=== PATIENT | male | born 1960 | race Caucasian/White ===

== ENCOUNTER 2018-09-08 23:20 | Emergency (ER) | payer OTHER ==
--- NOTE | 2018-09-09 00:11 | RAD ---
TWO VIEWS RIGHT HIP 09/08/18 HISTORY: Pain. COMPARISON: 11/07/11. FINDINGS: Uncomplicated right hip arthroplasty. Heterotopic bone formation is noted. No fracture. Vascular calc ifications are identified. IMPRESSION: Uncomplicated right hip arthroplasty. POS: [facility]
== END 2018-09-09 03:43 | disposition home or self-care (01) ==
LOC: ERS 23:20
DX: M25.551 Pain in right hip (principal); G89.29 Other chronic pain; F17.210 Nicotine dependence, cigarettes, uncomplicated; Z79.899 Other long term (current) drug therapy

== ENCOUNTER 2018-12-15 11:35 | Outpatient (CLI) | payer OTHER ==
--- NOTE | 2018-12-15 13:00 | RAD ---
LUMBAR SPINE RADIOGRAPHS THREE VIEWS: 12/15/2018 PROVIDED CLINICAL HISTORY: Lumbar spondylosis. FINDINGS: Five ged-soi-gjzbchj lumbar-type vertebral bodies are present. Lumbar alignment appears normal. The re is no evidence for abnormal translational motion with flexion or extension. Advanced multilevel l umbar disk and facet degenerative changes are seen. Vertebral body heights appear preserved. Vascul ar calcification is noted. IMPRESSION: Advanced multilevel lumbar degenerative change. POS: [facility]
--- NOTE | 2018-12-15 13:01 | RAD ---
CERVICAL SPINE RADIOGRAPHS 3 VIEWS: DATE: 12/15/2018. PROVIED CLINICAL HISTORY: Cervical radiculopathy. FINDINGS: Lateral neutral, lateral flexion, and lateral extension views of the cervical spine submitted. The s kull base through the top of the cranial aspects of the C7 vertebral body are visualized. Cervical a lignment appears normal, without evidence for abnormal translational motion with flexion and extensio n as visualized. Disk space narrowing and end plate degenerative changes conspicuously involve C3-4, C4-5, and C5-6. No prevertebral soft tissue swelling evident. IMPRESSION: Cervical degenerative change. POS: [facility]
== END 2018-12-15 11:36 | disposition home or self-care (01) ==
LOC: RAD 11:35
PROVIDERS: ATTEND Nurse Practitioner Family
DX: M47.22 Other spondylosis with radiculopathy, cervical region (principal); M47.816 Spondylosis without myelopathy or radiculopathy, lumbar region
CPT/HCPCS: 72040; 72100

== ENCOUNTER 2019-01-06 10:13 | Outpatient (CLI) | payer OTHER ==
--- NOTE | 2019-01-06 11:23 | ULT ---
HEPATIC ULTRASOUND WITH DOPPLER EVALUATION: HISTORY: Hepatitis C. TECHNIQUE: Real-time imaging of the upper abdomen is performed. FINDINGS: This shows a normal appearing gallbladder. The common duct is 4 to 5 mm. The liver measures 16 cm i n length and is of normal echogenicity. The spleen measures 12.4 cm in length. This is a rather thi n and elongated spleen. A small splenic granuloma is noted. On Doppler evaluation with spectral analysis, there are normal flow patterns shown within the liver. IMPRESSION: Unremarkable hepatic ultrasound. POS: [facility]
== END 2019-01-06 10:14 | disposition home or self-care (01) ==
LOC: BICULT 10:13
PROVIDERS: ATTEND Internal Medicine Gastroenterology
DX: B18.2 Chronic viral hepatitis C (principal)
CPT/HCPCS: 76705

== ENCOUNTER 2019-02-11 09:53 | Outpatient (CLI) | payer OTHER ==
--- NOTE | 2019-02-11 11:18 | CT ---
FCT abdomen and pelvis with and without IV contrast: INDICATION: History microscopic hematuria Contrast: 70 cc of Isovue 370 FINDINGS: No renal or ureteral calculus is evident. No hydronephrosis is evident. There is a mild reg ion of suspected mild enhancement involving the posterior aspect of the bladder on image 134 of serie s 3. No definite intraluminal defect is evident. No gross urothelial abnormalities seen involving the segmentally opacified ureters. No solid renal lesion is demonstrated. No free fluid is evident. No enlarged lymph nodes are noted. There are moderate to severe vascular calcifications involving the abdominal and pelvic vasculature. There is mild bibasilar atelectasis. There is fatty infiltration of the liver. The pancreas, adrenal glands and spleen appear within normal limits. There are small hypodensities in volving the kidneys, too small to characterize but statistically likely reflective of tiny cysts. There are scattered diverticula present without evidence of active diverticulitis. There is a mild am ount of retained stool within the colon. Small bowel is normal appearing. There is mild degenerative dextroscoliosis of the lumbar spine. There is a right total hip prosthesis that produces spray artifact that slightly limits evaluation of the lower pelvis. IMPRESSION: Area of mild suspected wall enhancement involving the posterior bladder on image 134 of series 3. Justo e of this may be related to persistent spray artifact along the lower aspect of the pelvis, therefore , artifact is not excluded. An intraluminal bladder lesion cannot be entirely excluded. Recommend cor relation with cystoscopy. Transcribed Date/Time: 02/11/2019 11:31 AM
== END 2019-02-11 09:54 | disposition home or self-care (01) ==
LOC: BICCT 09:53
PROVIDERS: ATTEND Urology
DX: R31.29 Other microscopic hematuria (principal); Z12.5 Encounter for screening for malignant neoplasm of prostate; Z86.19 Personal history of other infectious and parasitic diseases
CPT/HCPCS: 74178

== ENCOUNTER 2019-08-07 12:44 | Inpatient (IN) | payer OTHER ==
[~2019-08-07 12:44] MED LIST: ISOVUE-370 76%-LOCM 1 ML ONE
[2019-08-07 12:59] LABS: #Eosinphils 0.3 thou/uL (0.0-0.7); #Lymphocytes 2.3 thou/uL (1.20-3.40); #Monocytes 0.5 thou/uL (0.11-0.59); #Neutrophils 4.4 thou/uL (1.40-6.50); %Basophils 0.4 % (0.0-1.0); %Eosinophils 4.3 % (0.0-10.0); %Lymphocytes 30.2 % (21.0-51.0); %Monocytes 7.1 % (0.0-10.0); Hemoglobin 16.8 g/dL (14.0-18.0); Mean Corpuscular HGB CONC 35.8 g/dL (32.0-36.0); Mean Corpuscular Hemoglobin 34.5 pg (27.0-31.0); Mean Corpuscular Volume 96.5 fL (78.0-98.0); RBC Distribution Width 12.3 % (11.5-14.5); Red Blood Cell (RBC) Count 4.88 mill/uL (4.70-6.10); White Blood Cell (WBC) Count 7.6 thou/uL (4.8-10.8)
--- NOTE | 2019-08-07 13:02 | CT ---
CT Brain WO Con: 08/07/2019 12:00 AM CLINICAL HISTORY: Level 1 stroke alert; left-sided deficits with left-sided facial paralysis that beg an at 11:00 AM this morning. Focal seizure during time of onset. IMAGING TECHNIQUE: Multiple CT images were obtained of the brain without IV contrast. COMPARISON: CT the brain dated September 14, 2013. FINDINGS: Infarct: There is an acute region of intraparenchymal hemorrhage involving the right frontal lobe on image 24 of series 4 measuring 1.9 x 1.8 cm. There is some subarachnoid extension into a sulcus of the right frontal lobe on image 25 and image 24 of the axial series. No midline shift is evident. Rem ote left [employer] distribution infarct and bilateral frontal lobe encephalomalacia is again noted. Hemorrhage: As above. Hydrocephalus: None.. Basal cisterns: Normal.. Cerebral parenchyma: As above. Midline shift: None.. Cerebellum: Normal. Brainstem: Normal. OTHER: Calvarium: Intact.. Visualized Paranasal sinuses: Clear.. Extracranial soft tissues:Normal. IMPRESSION: 1. Acute intraparenchymal hemorrhage involving the right frontal lobe. Follow-up MRI of the brain wit h and without contrast is recommended. Small amount of subarachnoid extension is seen within an adjacent sulcus of the right frontal convexity. 2. Stable bilateral frontal encephalomalacia and remote left [employer] distribution infarct. 3. Findings called to Dr. Juárez at 12:58 PM on August 07, 2019.
[2019-08-07 13:06] LABS: INR-International Normal Ratio 1.1; PTT 24.9 SEC (22.9-36.1); Prothrombin Time 14.2 SEC (12.0-14.7)
[2019-08-07 13:21] LABS: ALT (SGPT) 16 U/L (8-55); AST (SGOT) 22 U/L (5-34); Albumin 4.1 g/dL (3.4-4.8); Alkaline Phosphatase 55 U/L (40-110); Anion Gap 15 mmol/L (10-20); BUN (Urea Nitrogen) 24 mg/dL (8.4-25.7); Bilirubin, Total 0.7 mg/dL (0.2-1.2); Calc. Creatinine Clearance 0 mL/min (70-130); Calcium 8.9 mg/dL (7.8-10.44); Carbon Dioxide 21 mmol/L (23-31); Chloride 107 mmol/L (98-107); Estimated GFR-MDRD 59; Globulin 3.7 g/dL (2.4-3.5); Glucose 94 mg/dL (80-115); Potassium 4.3 mmol/L (3.5-5.1); Protein, Total 7.8 g/dL (5.8-8.1); Sodium 139 mmol/L (136-145)
[2019-08-07 13:22] LABS: MDiff Complete? YES; Mean Platelet Volume 7.3 fL (7.4-10.4); Platelet Count 113 thou/uL (130-400); Platelet Morphology Comment Appears Decreased; Polychromasia SLIGHT = 2-3 cells (100X) (0-2/hpf)
[2019-08-07 13:42] LABS: CKMB 4.3 ng/mL (0-6.6)
[2019-08-07] MEDS ORDERED: levETIRAcetam 500 MG/100 ML PREMIX BAG ONE (15:14)
--- NOTE | 2019-08-07 15:49 | CT ---
CT angiogram of brain with contrast and 3D reformatted imaging: DATE: 08/07/2019 3:06 PM HISTORY: Intraparenchymal hemorrhage COMPARISON: Noncontrast CT the brain dated July 30, 2019 12:51 PM TECHNIQUE: Iodinated IV contrast injected. Bolus chasing technique scan performed through the head. Coronal and sagittal 3-D MIP reconstructions. FINDINGS: Right ICA: Patent. Right MCA: Patent. Right ALEXYS: Patent. ACOM: Patent. Left ICA: Occluded. The distal cervical ICA, petrous, precavernous and cavernous ICA are completely occluded. There is reconstitution of flow at the level of the supraclinoid ICA. Left MCA: Patent. Left ALEXYS: Patent. PCOMs: Patent. Vertebral arteries: Patent. Basilar Artery: Patent. patrol conductor: Patent. Incidentals: As seen on the comparison CT examination is an intraparenchymal hemorrhage centered wit hin the region of the right parietal lobe. No abnormal enhancement is grossly evident. There is stable encephalomalacia involving the bilateral frontal lobes. There is a remote left occipital lobe infarct.. IMPRESSION: Complete occlusion of the visualized left internal carotid artery with reconstitution seen at the lev el of the supraclinoid left ICA. Intracranial hemorrhage within the right parietal lobe without abnormal enhancement. This is suspicio us for a small hemorrhagic infarct. Other findings as above.
[2019-08-07] MEDS ORDERED: HYDROcodone/Acetaminophen 5/325 mg Tablet PO PRN (16:03)
[2019-08-07] MEDS ORDERED: Acetaminophen 325 MG TAB PO PRN (16:03)
[2019-08-07] MEDS ORDERED: Ondansetron ODT 4 MG TAB PO PRN (16:03)
[2019-08-07 16:52] VITALS: BMI 26.2
[2019-08-07] MEDS: Sodium Chloride 0.9% 1,000 ML IV SCH (19:54)
[2019-08-07] MEDS ORDERED: hydrALAZINE 20 MG/ML VIAL SLOW IVP PRN (20:11)
[2019-08-07] MEDS: levETIRAcetam 500 MG TAB PO SCH (20:57)
[2019-08-07] MEDS: Gabapentin 400 MG CAP PO SCH (20:57)
[2019-08-07] MEDS ORDERED: Metoprolol Tartrate 25 MG TAB PO SCH (21:00)
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
[2019-08-08 04:52] LABS: #Basophils 0.1 thou/uL (0.0-0.2); #Eosinphils 0.5 thou/uL (0.0-0.7); #Lymphocytes 3.2 thou/uL (1.20-3.40); #Monocytes 0.7 thou/uL (0.11-0.59); #Neutrophils 4.3 thou/uL (1.40-6.50); %Basophils 0.7 % (0.0-1.0); %Eosinophils 5.9 % (0.0-10.0); %Lymphocytes 36.6 % (21.0-51.0); %Neutrophils 48.9 % (42.0-75.0); Hemoglobin 16.3 g/dL (14.0-18.0); Mean Corpuscular HGB CONC 34.6 g/dL (32.0-36.0); Mean Corpuscular Hemoglobin 33.6 pg (27.0-31.0); Mean Corpuscular Volume 97.1 fL (78.0-98.0); Mean Platelet Volume 7.6 fL (7.4-10.4); Platelet Count 124 thou/uL (130-400); RBC Distribution Width 12.3 % (11.5-14.5); Red Blood Cell (RBC) Count 4.86 mill/uL (4.70-6.10); White Blood Cell (WBC) Count 8.9 thou/uL (4.8-10.8)
[2019-08-08 05:12] LABS: Anion Gap 13 mmol/L (10-20); BUN (Urea Nitrogen) 20 mg/dL (8.4-25.7); Calc. Creatinine Clearance 72 mL/min (70-130); Carbon Dioxide 21 mmol/L (23-31); Chloride 106 mmol/L (98-107); Estimated GFR-MDRD 67; Glucose 84 mg/dL (80-115); Potassium 4.3 mmol/L (3.5-5.1); Sodium 136 mmol/L (136-145)
--- NOTE | 2019-08-08 08:17 | CT ---
CT BRAIN WITHOUT CONTRAST: INDICATIONS: Follow up intraparenchymal hemorrhage. COMPARISON: Prior exam dated 08/07/2019. FINDINGS: The intraparenchymal hematoma involving the right parietal lobe measures 1.7 x 1,8 cm, which is stabl e to the prior exam. The small focus of subarachnoid hemorrhage overlying is stable on image 25 of s eries 2. Encephalomalacia involving the left occipital and bilateral frontal lobes is stable. Chroni c small vessel ischemic change is similar appearing. No midline shift is evident. The mastoid air nader ls are clear. The paranasal sinuses are clear. The skull is intact. IMPRESSION: 1. Stable right parietal lobe intraparenchymal hematoma. 2. Stable bilateral frontal encephalomalacia and remote left occipital lobe infarct. POS: [facility]
[2019-08-08] MEDS: Dextrose 5 % And 0.9 % NaCl 1,000 ML IV SCH (09:00)
[2019-08-08] MEDS ORDERED: Amlodipine 10 MG TAB PO SCH (09:00)
[2019-08-08] MEDS: Sodium Chloride 0.9% 1,000 ML IV SCH (09:10)
[2019-08-08] MEDS: Gabapentin 400 MG CAP PO SCH ×3 (09:11→21:22)
[2019-08-08] MEDS: levETIRAcetam 500 MG TAB PO SCH ×2 (09:11→21:22)
[2019-08-08] MEDS ORDERED: FOSPHENYTOIN SODIUM IVPB SCH (11:00)
[2019-08-08] MEDS ORDERED: SODIUM CHLORIDE 0.9% IVPB SCH (11:00)
[2019-08-08] MEDS ORDERED: Lorazepam 2 MG/ML VIAL SLOW IVP PRN (11:08)
[2019-08-08] MEDS ORDERED: Lorazepam 2 MG/ML VIAL ONE (11:08)
--- NOTE | 2019-08-08 11:47 | PDOC.HOSPP ---
- Subjective Encounter Date: 08/08/19 Encounter Time: 10:00 Subjective: is having left UE focal seizures, fully oriented while seizing at present at bedside says he has had them before off and on no sob or chest pain or palp has headache - Objective Vital Signs & Weight: Vital Signs (12 hours) Temp Pulse BP 08/08/19 09:11 46 L 125/71 08/08/19 04:00 99.2 F 08/08/19 00:00 98.7 F Weight Weight 162 lb 4.163 oz Most Recent Monitor Data Heart Rate from ECG 46 NIBP 122/65 NIBP BP-Mean 84 Respiration from ECG 15 SpO2 98 I&O: 08/07/19 08/08/19 08/09/19 06:59 06:59 06:59 Intake Total 1075 Output Total 1225 Balance -150 Result Diagrams: 08/08/19 04:03 08/08/19 04:03 Additional Labs: Accuchecks 08/07/19 12:51 POC Glucose 100 Hospitalist ROS - Medication Medications: Active Medications Generic Name Dose Route Start Last Admin Trade Name Freq PRN Reason Stop Dose Admin Acetaminophen 650 mg 08/07/19 16:03 08/08/19 10:14 Tylenol PO 650 mg Q4H PRN Administration Headache/Fever/Mild Pain (1-3) Gabapentin 800 mg 08/07/19 21:00 08/08/19 09:11 Neurontin PO 800 mg TID LEYDI Administration Fosphenytoin Sodium 1,470 mg/ 79.4 mls @ 158.8 mls/hr 08/08/19 11:00 11:22 Sodium Chloride IVPB 08/08/19 13:00 79.4 mls NOW LEYDI Administration Levetiracetam 1,000 mg 08/07/19 21:00 08/08/19 09:11 Keppra PO 1,000 mg BID LEYDI Administration Pantoprazole Sodium 40 mg 08/08/19 09:00 08/08/19 09:16 Protonix PO 40 mg DAILY LEYDI Administration - Exam General Appearance: awake alert Eye: PERRL, anicteric sclera ENT: no oropharyngeal lesions, dry oral mucosa Neck: supple, no JVD Heart: RRR, no murmur Respiratory: no wheezes, no rales Gastrointestinal: soft, non-tender, non-distended, normal bowel sounds Extremities: no cyanosis, no edema Neurological: no focal deficits Neurological - other findings: partial seizure in left UE Psychiatric: normal affect, A&O x 3 Hosp A/P (1) ICH (intracerebral hemorrhage) Code(s): I61.9 - NONTRAUMATIC INTRACEREBRAL HEMORRHAGE, UNSPECIFIED Status: Acute Qualifiers: Intracerebral hemorrhage etiology: nontraumatic Cerebral hemorrhage location: cerebral hemisphere, unspecified portion Laterality: right Qualified Code(s): I61.2 - Nontraumatic intracerebral hemorrhage in hemisphere, unspecified (2) Partial seizure, motor Code(s): G40.109 - LOCAL-REL SYMPTC EPI W SIMP PRT SEIZ,NOT NTRCT, W/O STAT EPI Status: Acute (3) HTN (hypertension) Code(s): I10 - ESSENTIAL (PRIMARY) HYPERTENSION Status: Chronic Qualifiers: Hypertension type: essential hypertension Qualified Code(s): I10 - Essential (primary) hypertension (4) Bradycardia Code(s): R00.1 - BRADYCARDIA, UNSPECIFIED Status: Acute (5) H/O traumatic brain injury Code(s): Z87.820 - PERSONAL HISTORY OF TRAUMATIC BRAIN INJURY Status: Chronic - Plan has h/o seizure disorder and is on keppra at home, now has right sided focal seizures (?chronic per -not a good historian) has been loaded with fosphenytoin, will give one dose ativan iv push watch for airway On arrival had right parietal lobe ICH with possible subarachnoid ext echo for lv function, ?bradycardia likely due to ICH d/w , neurology consultation, PT/OT eval when he stops seizing continue home dose neurontin tid on protonix sbp around 130's now, cinically his strength is normal in all 4 extremities and is fully oriented
--- NOTE | 2019-08-08 11:59 | PRG ---
DATE OF SERVICE: 08/08/2019 This is a 30-minute initial visit note, in which 30 minutes was spent in reviewing the imaging record, evaluation, and examination of the patient. Greater than 50% time was spent in counseling on Liam Webster. SUBJECTIVE: Mr. Webster is a 59-year-old man with history of bifrontal cranial injury. He has a history of seizures related to that. He came and therapeutic on his Keppra, but had a left-sided focal motor seizure. Head CT demonstrated an intraparenchymal hemorrhage with subarachnoid component. CT angiogram was negative. This may be an old area of encephalomalacia, which puts him at a higher risk for hemorrhage in that particular part of the brain. We gave additional Keppra, unfortunately had another focal motor seizure today and as such, we are starting fosphenytoin. Otherwise, he is neurologically intact. We will place a Neurology consult and keep him in the ICU at this time. Job ID: [id number]
--- NOTE | 2019-08-08 14:58 | MRI ---
MRI BRAIN WITHOUT CONTRAST: INDICATIONS: History of intracranial hemorrhage. COMPARISON: Prior CT evaluation dated 08/08/2019 at 5:15 a.m. FINDINGS: As seen on the comparison CT examination, there is an area of intraparenchymal hemorrhage involving t he right parietal region with some mild surrounding vasogenic edema. A small amount of adjacent subar achnoid hemorrhage is suspected within a sulcus adjacent to this region in the right parietal convexi ty. There are some areas of restricted diffusion within the hemorrhage on the diffusion weighted imag es; however, the presence of hemosiderin slightly limits image detail. Encephalomalacia of the frontal lobes and left occipital lobe, as seen on CT examination, is similar appearing. There are appropriate flow voids within the major intracranial vessels. The skull and extr acranial soft tissues appear within normal limits. The [place] lenses have been replaced. Exam detail is somewhat limited due to lack of IV contrast as well as motion artifact. IMPRESSION: 1. Findings suspicious for a hemorrhagic infarct involving the right parietal region with a small are a of adjacent subarachnoid hemorrhage. 2. Stable bilateral frontal lobe encephalomalacia, likely related to prior trauma. 3. Stable remote left occipital lobe cortical and subcortical white matter infarct. POS: [facility]
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
[2019-08-09] MEDS: Dextrose 5 % And 0.9 % NaCl 1,000 ML IV SCH ×2 (01:52→13:00)
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
[2019-08-09] MEDS: levETIRAcetam 500 MG TAB PO SCH (09:33)
[2019-08-09] MEDS: Gabapentin 400 MG CAP PO SCH ×2 (09:33→15:17)
--- NOTE | 2019-08-09 09:39 | PRG ---
DATE OF SERVICE: 08/09/2019 SUBJECTIVE: The patient had what sounds like a seizure last night with movement of his left arm. OBJECTIVE: VITAL SIGNS: On exam, temperature 98.5, pulse in the 40s to 50s, blood pressure 117/63, O2 saturation 95%. HEENT: Unremarkable. NECK: No JVD. LUNGS: Clear anteriorly. CARDIAC: S1, S2. Regular. ABDOMEN: Soft. EXTREMITIES: No edema. NEUROLOGIC: Nonfocal at the current time. ASSESSMENT: 1. Right parietal parenchymal bleed. 2. Focal seizures. 3. No acute cardiopulmonary issues. PLAN: The patient can be transferred out to the floor. Job ID: [id number]
[2019-08-09 11:17] VITALS: BP 125/81
[2019-08-09 16:12] VITALS: TEMP 97.5
--- NOTE | 2019-08-09 17:10 | DIS ---
DATE OF ADMISSION: 08/07/2019 DATE OF DISCHARGE: 08/09/2019 DISCHARGE DISPOSITION: Home. PRIMARY DISCHARGE DIAGNOSES: Intracranial hemorrhage in the right parietal lobe with subarachnoid extension, history of seizure disorder with breakthrough focal seizures on the left upper extremity, history of traumatic brain injury on both sites of his cerebral hemisphere and hypotension. PROCEDURES DONE DURING HOSPITALIZATION: CT angio of brain showed complete occlusion of visualized left internal carotid artery with reconstitution seen at the level of supraclinoid left ICA. Intracranial hemorrhage within the right parietal lobe with small hemorrhagic infarct. Initial CT brain showed intraparenchymal hemorrhage in the right parietal lobe with small amount of subarachnoid extension, stable bilateral and frontal encephalomalacia with remote left [employer] distribution infarct. MRI brain without contrast done showed findings suspicious for hemorrhagic infarct involving the right parietal region with a small area of adjusting subarachnoid hemorrhage, stable bilateral frontal lobe encephalomalacia related to prior trauma, stable remote left occipital lobe cortical and subcortical white matter infarct. H and H are 16 and 47, platelet count 124, MCV is 97. PT, INR, and PTT within normal limits. BUN 20, creatinine 1.1. Keppra levels were 33.6 mcg/mL on the day of admission, which is therapeutic. Phenytoin was 14.1 mcg/mL on the day of discharge. DISCHARGE MEDICATIONS: 1. Norvasc 10 mg p.o. daily. 2. Fish oil 1000 mg p.o. daily. 3. Gabapentin 800 mg p.o. three times daily. 4. Keppra 1000 mg p.o. twice daily. 5. Phenytoin extended release 300 mg p.o. at bedtime. 6. Trazodone 50 mg p.o. at bedtime. 7. Omeprazole 40 mg p.o. daily. ALLERGIES: NO KNOWN DRUG ALLERGIES. INPATIENT CONSULT: Dr. Jones for Pulmonology and Critical Care. Dr. July Umanzor for Neurology. ADMITTING SURGEON: Dr. Jacinto, Neurosurgery. DISCHARGE PLAN: The patient to follow up with Dr. Jacinto in 2 weeks and he needs to follow up with his primary care physician in 1 week. 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 BRIEF COURSE DURING HOSPITALIZATION: The patient initially was brought to Emergency Room after he developed left-sided weakness. The patient also had rhythmic jerking movement of left upper extremity. His initial CT brain without contrast showed right parietal lobe bleed, intraparenchymal with subarachnoid extension. He was initially admitted to ICU and has had serial CAT scans done which has shown stability in the bleed. The patient has ambulated in the hallway this morning. He is bit unsteady and needs a rolling walker. His blood pressure has remained fairly stable with systolic blood pressures around 130s. The patient was on Keppra prior to arrival and was loaded on fosphenytoin 1 dose and has had a dose of phenytoin 300 mg p.o. at bedtime. He has had one more breakthrough seizure overnight, but has fairly remained stable neurologically. He is hemodynamically stable and is wanting to go home. He will be shortly discharged home. Please note, I have seen and examined the patient on the day of discharge. Job ID: [id number] MTDD
--- NOTE | 2019-08-10 06:03 | PQF ---
JOHN HORNE VINAYA KUMAR MD [id number] CLINICAL DOCUMENTATION CLARIFICATION FORM: POST DISCHARGE Addendum to original discharge summary date: ____ Late entry note date: __ DATE:08-10-2019 ATTN:Dewayne Mcdowell Please exercise your independent, professional judgment in responding to the clarification form. Clinical indicators are provided on the bottom of this form for your review Please check appropriate box(s): [ x ] Cerebral edema / Vasogenic edema sec to intracranial bleed [ ] Compression of brain [ ] Other diagnosis please specify: [ ] Unable to determine In addition, please specify: Present on Admission (POA): [ x ] Yes [ ] No [ ] Unable to determine For continuity of documentation, please document condition throughout progress notes and discharge summary. Thank You. CLINICAL INDICATORS H&P p1 08/07-Had sudden onset of left-sided facial droop and lelf sided weakness H&P 08/07-GCS 15 Consult 08/08-transient left-sided weakness, probably related to right pariental findings on CT Brain MRI 08/08-Findings : as seen on CT comparison CT exam, there is an area of intraparenchymal hemorrhage involving the right pariental region with some mild surrouding vasogenic edema RISK FACTORS H&P p1 08/07-Intraparenchymal hemorrhage with subarachnoid component H&P p1 08/07-Seizure Disorder H&P 08/07-Hypertension Consult p2 08/08-Tobacco and marijuana abuse TREATMENTS: H&P p1 08/07-On Keppra H&P 08/07-Elevated head of bed to 30 degree H&P p2 08/07-Extra dosage of 500mg if Keppra IV H&P p2 08/07-Would like his systolic blood pressure to remain less niyah 140 H&P p2 08/07-Continue to monitor the patient neurologically (This form is maintained as a part of the permanent medical record) 2014 [employer]. All Rights Reserved Damaris [email or web address] [not provided] MTDD
--- NOTE | 2019-08-14 14:42 | EKG ---
Test Reason : Blood Pressure : / mmHG Vent. Rate : 061 BPM Atrial Rate : 061 BPM P-R Int : 144 ms QRS Dur : 084 ms QT Int : 424 ms P-R-T Axes : 053 -15 032 degrees QTc Int : 426 ms Normal sinus rhythm Minimal voltage criteria for LVH, may be normal variant Borderline ECG Confirmed by SEPIDEH SALDAÑA DO ([id number]), features editor MIKAELA GARRETT ([id number]) on 08/14/2019 2:41:57 PM Referred By: Confirmed By:SEPIDEH SALDAÑA DO
== END 2019-08-09 16:20 | disposition home or self-care (01) | DRG 64 ==
LOC: ERS 12:44 → CCU 16:15
PROVIDERS: ADMIT Surgery; ATTEND Surgery
DX: I61.1 Nontraumatic intracerebral hemorrhage in hemisphere, cortical (principal); G93.6 Cerebral edema; G81.94 Hemiplegia, unspecified affecting left nondominant side; G40.109 Localization-related (focal) (partial) symptomatic epilepsy and epileptic syndromes with simple partial seizures, not intractable, without status epilepticus; I10 Essential (primary) hypertension; F17.210 Nicotine dependence, cigarettes, uncomplicated; R29.810 Facial weakness; B19.20 Unspecified viral hepatitis C without hepatic coma; R40.2412 Glasgow coma scale score 13-15, at arrival to emergency department; M19.90 Unspecified osteoarthritis, unspecified site; F12.10 Cannabis abuse, uncomplicated; G93.89 Other specified disorders of brain; I60.9 Nontraumatic subarachnoid hemorrhage, unspecified; Z96.641 Presence of right artificial hip joint; I95.9 Hypotension, unspecified; R00.1 Bradycardia, unspecified; Z79.899 Other long term (current) drug therapy; Z87.820 Personal history of traumatic brain injury
CPT/HCPCS: 36415; 36416; 70450; 70496; 70551; 80048; 80053; 80177; 80185; 82553; 84484; 85025; 85610; 85730; 93005; 96365; J1953; J2060; J2997; Q2009; Q9966

== ENCOUNTER 2019-08-10 11:26 | Emergency (ER) | payer OTHER ==
[2019-08-10 12:12] LABS: #Basophils 0.1 thou/uL (0.0-0.2); #Eosinphils 0.4 thou/uL (0.0-0.7); #Lymphocytes 2.8 thou/uL (1.20-3.40); #Monocytes 0.9 thou/uL (0.11-0.59); #Neutrophils 4.7 thou/uL (1.40-6.50); %Basophils 0.8 % (0.0-1.0); %Eosinophils 5.1 % (0.0-10.0); %Lymphocytes 31.4 % (21.0-51.0); %Monocytes 10.1 % (0.0-10.0); %Neutrophils 52.7 % (42.0-75.0); Hemoglobin 17.8 g/dL (14.0-18.0); Mean Corpuscular HGB CONC 34.9 g/dL (32.0-36.0); Mean Corpuscular Hemoglobin 33.8 pg (27.0-31.0); Mean Corpuscular Volume 96.8 fL (78.0-98.0); Mean Platelet Volume 7.5 fL (7.4-10.4); Platelet Count 131 thou/uL (130-400); RBC Distribution Width 12.3 % (11.5-14.5); Red Blood Cell (RBC) Count 5.28 mill/uL (4.70-6.10); White Blood Cell (WBC) Count 8.8 thou/uL (4.8-10.8)
[2019-08-10] MEDS ORDERED: Ketorolac Tromethamine 30 MG/ML VIAL ONE (12:16)
--- NOTE | 2019-08-10 12:16 | CT ---
CT BRAIN WITHOUT CONTRAST: DATE: 08/10/2019. TIME: 11:51 AM. CLINICAL HISTORY: Headache. COMPARISON: 08/08/2019 FINDINGS: Redemonstration of intracranial hemorrhage as was depicted on CT head exam 2 days prior. Surrounding vasogenic edema is present, with a slight increase in degree of the vasogenic edema. No significant midline shift has developed. Redemonstration of bifrontal encephalomalacia, and left occipital enceph alomalacia. IMPRESSION: 1. Redemonstration of right frontoparietal hematoma with surrounding vasogenic edema. 2. Slight progression of surrounding vasogenic edema noted. Transcribed Date/Time: 08/10/2019 1:26 PM
[2019-08-10 12:35] LABS: ALT (SGPT) 17 U/L (8-55); AST (SGOT) 26 U/L (5-34); Albumin 4.1 g/dL (3.4-4.8); Alkaline Phosphatase 62 U/L (40-110); Anion Gap 15 mmol/L (10-20); BUN (Urea Nitrogen) 16 mg/dL (8.4-25.7); Bilirubin, Total 0.7 mg/dL (0.2-1.2); Calc. Creatinine Clearance 0 mL/min (70-130); Calcium 10.2 mg/dL (7.8-10.44); Carbon Dioxide 25 mmol/L (23-31); Chloride 102 mmol/L (98-107); Estimated GFR-MDRD 55; Globulin 4.6 g/dL (2.4-3.5); Glucose 93 mg/dL (80-115); Potassium 5.5 mmol/L (3.5-5.1); Protein, Total 8.7 g/dL (5.8-8.1); Sodium 136 mmol/L (136-145)
== END 2019-08-10 13:41 | disposition home or self-care (01) ==
LOC: ERS 11:26
DX: R51 Headache (principal); I10 Essential (primary) hypertension; G40.909 Epilepsy, unspecified, not intractable, without status epilepticus; F17.210 Nicotine dependence, cigarettes, uncomplicated
CPT/HCPCS: 36415; 70450; 80053; 85025; 93005; 96361; 96374; J1885

== ENCOUNTER 2019-08-12 10:07 | Inpatient (IN) | payer OTHER ==
[2019-08-12] MEDS ORDERED: Fentanyl 100 MCG/2 ML VIAL ONE ×2 (10:09→10:55)
[2019-08-12 10:22] LABS: #Basophils 0.1 thou/uL (0.0-0.2); #Eosinphils 0.4 thou/uL (0.0-0.7); #Monocytes 0.8 thou/uL (0.11-0.59); #Neutrophils 7.3 thou/uL (1.40-6.50); %Basophils 0.7 % (0.0-1.0); %Eosinophils 4.2 % (0.0-10.0); %Lymphocytes 18.7 % (21.0-51.0); %Monocytes 7.7 % (0.0-10.0); %Neutrophils 68.7 % (42.0-75.0); Hemoglobin 17.6 g/dL (14.0-18.0); Mean Corpuscular HGB CONC 34.5 g/dL (32.0-36.0); Mean Corpuscular Hemoglobin 33.3 pg (27.0-31.0); Mean Corpuscular Volume 96.6 fL (78.0-98.0); Mean Platelet Volume 7.5 fL (7.4-10.4); Platelet Count 154 thou/uL (130-400); RBC Distribution Width 12.2 % (11.5-14.5); Red Blood Cell (RBC) Count 5.27 mill/uL (4.70-6.10); White Blood Cell (WBC) Count 10.6 thou/uL (4.8-10.8)
--- NOTE | 2019-08-12 10:27 | CT ---
EXAM: CT brain without contrast HISTORY: Stroke. Previous intracerebral hemorrhage COMPARISON: 08/10/2019 TECHNIQUE: Multiple contiguous axial images were obtained and a CT of the brain without contrast. FINDINGS: There are 2 areas of hemorrhage in the right cerebral subcortical white matter. The more an terior frontal hemorrhage measures 3.0 cm in greatest dimension. The more posterior parietal hemorrhage measures 3.7 cm in greatest dimension. There is no evidence of midline shift or downward h erniation. Encephalomalacia seen in the bilateral frontal lobes and the left parietal lobe. No hydrocephalus is seen. The calvarium and overlying soft tissues are unremarkable. The visualized paranasal sinuses and masto id air cells are well aerated. IMPRESSION: Worsening right cerebral parenchymal hemorrhages Dr. Barker notified of findings at 10:23 AM on 08/12/2019
[2019-08-12 10:35] LABS: ALT (SGPT) 24 U/L (8-55); AST (SGOT) 27 U/L (5-34); Albumin 4.2 g/dL (3.4-4.8); Alkaline Phosphatase 79 U/L (40-110); Anion Gap 18 mmol/L (10-20); BUN (Urea Nitrogen) 21 mg/dL (8.4-25.7); Bilirubin, Total 0.5 mg/dL (0.2-1.2); CK (CPK) 203 U/L (30-200); Calc. Creatinine Clearance 0 mL/min (70-130); Calcium 8.9 mg/dL (7.8-10.44); Carbon Dioxide 19 mmol/L (23-31); Chloride 103 mmol/L (98-107); Estimated GFR-MDRD 46; Globulin 4.1 g/dL (2.4-3.5); Glucose 199 mg/dL (80-115); Potassium 3.9 mmol/L (3.5-5.1); Protein, Total 8.3 g/dL (5.8-8.1); Sodium 136 mmol/L (136-145)
--- NOTE | 2019-08-12 10:37 | CT ---
CT OF CERVICAL SPINE PERFORMED WITHOUT CONTRAST ENHANCEMENT: Date: 08/12/19 HISTORY: Patient fell, unresponsive, neck pain. FINDINGS: The vertebral bodies are normal in height. There is severe degenerative disc narrowing from the C3-4 to the C6-7 level. There are also degenerative facet changes. The facets are in normal alignment. End otracheal and NG tubes are present. At the C2-3 level, there is marked left-sided foraminal narrowing, and minimal retrolisthesis of C3 o n C4 is associated with a moderate degree of canal stenosis with posterior osteophytic change, and th ere is fairly severe bilateral foraminal narrowing related to uncovertebral changes. At the C5-6 level, there is a more severe degree of stenosis related to posterior osteophytic bar, an d also marked uncovertebral changes causing marked bilateral foraminal narrowing. There is fairly pro nounced bilateral foraminal narrowing at C5-6 without significant canal stenosis, and moderately sony re canal stenosis at C6-7 with posterior osteophytic change, and marked left and moderate right leandra inal narrowing. There is no CT evidence for fracture. IMPRESSION: Areas of canal and foraminal stenosis as described above. No CT evidence for fracture. POS: [facility]
[2019-08-12 10:42] LABS: INR-International Normal Ratio 1.1; Prothrombin Time 13.9 SEC (12.0-14.7)
[2019-08-12 10:53] LABS: Actual Bicarbonate (HCO3a) 19.4 mEq/L (22-28); Analyzer IN Cardio ER; Base Excess (BEa) -6.7 mEq/L (-2.0 to +3.0); CO2 Tension 41.1 mmHg (35.0-45.0); Calcium, Ionized 1.15 mmol/L (1.12-1.30); Hemoglobin (Hb) 16.6 g/dL (14.0-18.0); O2 Tension (PaO2) 133.3 mmHg (> 80.0); Potassium - ABG Lab 3.79 mmol/L (3.70-5.30); pH, Arterial 7.29 (7.35-7.45)
[2019-08-12 10:57] LABS: Bilirubin Negative (Negative); Blood, Urine 2+ (Negative); Clarity Clear (Clear); Glucose, Urine (Dipstick) 50 mg/dL (Negative); Leukocyte Negative Leu/uL (Negative); Nitrite Negative (Negative); Protein, Urine (Dipstick) 600 mg/dL (Neg-Trace); Squamous Epithelial 0-3 HPF (0-3); Urobilinogen Normal mg/dL (Less than 2)
[2019-08-12 10:58] LABS: ALV-art Gradient 171.825 (0-20); Puncture Site L.R.
[2019-08-12] MEDS ORDERED: Fentanyl 20 mcg/ml (100 ml CADD) IV PRN (11:03)
[2019-08-12 11:07] LABS: Bacteria/HPF None Seen HPF (None Seen)
[2019-08-12] MEDS ORDERED: Ketamine 50 MG/ML (10ML VIAL) ONE ×2 (11:16→13:14)
--- NOTE | 2019-08-12 11:46 | RAD ---
CHEST 1 VIEW: Date: 08/12/19 HISTORY: Unresponsive patient. Seizure. COMPARISON: Radiograph from 2013. FINDINGS: The patient is intubated with endotracheal tube tip at level of clavicles. Enteric tube tip below nestor phragm, though out of field of view. Mild lung hypoinflation and scattered atelectasis. No pneumothor ax. Moderate degenerative changes of both glenohumeral joints. IMPRESSION: 1. Satisfactory position of endotracheal tube. 2. Enteric tube tip below diaphragm, though out of field of view. POS: OFF
--- NOTE | 2019-08-12 13:32 | PRG ---
DATE OF SERVICE: 08/12/2019 I personally reviewed records, imaging, prior admission records, and all documentation, I agree with the notes of Mariposa Roman PA-C. Briefly, Mr. Webster is a 59-year-old gentleman, who was admitted on August 07, with intracerebral hemorrhage. The hemorrhage was stable and was discharged. He was re-evaluated on the in the Emergency Department with worsening symptoms and came back today once again after seizure. CT imaging brain shows increased amount of the intraparenchymal hemorrhage. Both the old and new hemorrhage are in the parasagittal plane. I personally reviewed old imaging and I believe this is a superior sagittal sinus, transverse sinus, sigmoid sinus, and jugular thrombosis. There is a large clot in the superior sagittal sinus as far back as 08/07/2019. This was not recognized during the original read of his CT angiogram, but is clearly present. There is venous phase present and there is a straight sinus, right transverse sinus, right sigmoid sinus, and right jugular present, so the left side should be visible as well. It is not. There is also no superior sagittal sinus filling, but a large veins in the parasagittal plane. This makes sense given the repeat hemorrhage in a paramedian fashion. These hemorrhages represent venous infarction and venous hypertension from the presence of the clot. Most emergent need is to treat the clot as carefully as possible. We will lower the blood pressure and keep it in the normal range. We will add heparin very gently, so that we do not increase the hemorrhage. If the patient remains symptomatic or worsens, and then we may have to try something more invasive. Those are all fraught with high degree of morbidity. The more long-term need is to evaluate him for sources of hypercoagulability, both genetic and environmental. Treating those will be necessary as well. He makes it through this critical time frame. He would be a candidate for long-term blood thinning until his risk factors for hypercoagulability are controlled. Neurosurgery team will be available if there is acute deterioration and surgical intervention is contemplated or if they have gentle use of heparin is ineffective. Job ID: [id number]
[2019-08-12 13:59] VITALS: BMI 29.5
[2019-08-12] MEDS ORDERED: Diazepam 10 MG/2 ML SYRINGE IVP PRN (14:06)
[2019-08-12] MEDS ORDERED: niCARdipine 25 MG in Sodium Chloride 0.9% 250 ML 250 ML IVPB PRN (14:06)
[2019-08-12] MEDS ORDERED: Ventilator Sedation Protocol 1 EACH FS ONE (14:15)
[2019-08-12] MEDS ORDERED: Fentanyl BOLUS 250 ML IVPB PRN (14:24)
[2019-08-12] MEDS ORDERED: Propofol 1,000 MG/100 ML VIAL IV PRN (14:24)
[2019-08-12] MEDS ORDERED: Propofol BOLUS 1,000 MG/100 ML VIAL IV PRN (14:24)
[2019-08-12] MEDS ORDERED: Morphine 2 MG/ML SYRINGE SLOW IVP PRN (14:24)
[2019-08-12] MEDS ORDERED: fentaNYL Citrate/PF 2,000 MCG in Sodium Chloride 0.9% 60 ML IV SCH (14:24)
--- NOTE | 2019-08-12 14:28 | PDOC.EVN ---
Event Note - Event Note Event Note: FM Attending note. I saw the patient immediately after arrival at . Recent [facility] and apparently found down or fell at rehab and was sent back here. He was seizing per report and was subsequently intubated. Neurosurgery PA saw the patient in the ER and, I am told, recommended heparin?. On exam he is intubated, sedated. His pupils are small but reactive, he moves all extremities but does not follow commands No obvious trauma RRR s M CTAB s w/r/r BS+, NTTP No edema Healing scratches on lower extremities FCIP Labs and imaging reviewed ICH, worsening, with negative bony trauma -will hold off on anticoagulation -MRI apparently ordered by NSx, but the patient is quite agitated without sedation, I have called and TT multiple times without reply, but feel paralytic will be necessary for imaging -Monitor BS, O2 sat, elevated HOB if possible, repeat ABG in 30-60 minutes as RR 20 and TV 500. I have TT Dr. Jones to notify as well, but I am told the ER discussed the case with him earlier.
[2019-08-12] MEDS ORDERED: Vecuronium 10 MG VIAL IVP SCH (14:30)
[2019-08-12] MEDS ORDERED: Lorazepam 2 MG/ML VIAL SLOW IVP PRN (14:33)
[2019-08-12] MEDS: Lorazepam 2 MG/ML VIAL SLOW IVP PRN ×2 (14:44→20:24)
--- NOTE | 2019-08-12 14:50 | PDOC.EVN ---
Event Note - Event Note Event Note: Discussed with [facility] PA who states they feel etiology is likely from cerebral venous thrombosis. MRV has been ordered and patient will be going to MRI shortly. I will defer anticoagulation to [facility], and I have discussed the case with Dr. Jones as well.
[2019-08-12] MEDS ORDERED: Heparin 25,000 units/D5W 500 ML IVPB SCH (15:15)
[2019-08-12] MEDS ORDERED: Sodium Chloride 0.9% 1,000 ML IV SCH (15:30)
--- NOTE | 2019-08-12 15:45 | PRG ---
DATE OF SERVICE: 08/12/2019 I just got off the phone with our colleagues in Critical Care Medicine. By report, the admitting Family Medicine Service and our Critical Care doctors were not comfortable ordering heparin for the superior sagittal sinus thrombosis, transverse sinus thrombosis, sigmoid sinus thrombosis, and jugular vein clot. This is actually the treatment of choice, and it is one that carries risk. A backup plan would be some sort of mechanical thrombectomy either trans-venous or amena hole access with mechanical thrombectomy in the operating room. Between IV heparin and those clot removal techniques, there could be a trial of tPA. All of these are at high risk. What Mr. Webster needs is a center, in which there is an Inpatient Neurology Team to manage this problem. There is no indication for any neurosurgery currently, but there should be a close and attentive neurology team available for management. Familiarity with this condition from the critical care team, and the medical team, would be helpful as well. This does not exist here, so a transfer will be made. I have contacted the transfer nurse, and she is getting in touch with colleagues in [place] for placement there. Job ID: [id number] MTDD
[2019-08-12] MEDS ORDERED: FLU VACC QS2019-20(6MOS UP)/PF 60 MCG/0.5 ML SYRINGE IM ONE (16:00)
--- NOTE | 2019-08-12 16:01 | MRI ---
MRI OF BRAIN WITHOUT CONTRAST: 08/12/19 CLINICAL HISTORY: Stroke. Progressive hemorrhage as is depicted on head CT earlier same day. FINDINGS: There is multifocal susceptibility of the right cerebral hemisphere involving the posterior right fro ntal and right parietal lobe compatible with the progressive cerebral parenchymal hemorrhage demonstr ated on the CT exam from earlier same date. There is surrounding vasogenic edema. No significant shif t of midline. The findings are superimposed upon gliosis and encephalomalacia, multifocal, within the bilateral cerebral hemispheres. There is abnormal increased T1 signal involving the superior sagitta l sinus, left transverse sinus and left internal jugular vein compatible with thrombus related to dur al vein thrombosis. There is hemosiderin deposition within sites of encephalomalacia within the left cerebral hemisphere. Restricted diffusion related to intracranial hemorrhage is noted. IMPRESSION: Multifocal acute parenchymal hemorrhagic foci, with surrounding vasogenic edema within the right cere bral hemisphere. There is associated abnormal signal intensity involving the superior sagittal sinus, left transverse sinus and left internal jugular vein indicating extensive dural vein thrombosis. Hem orrhagic foci are therefore likely on the basis of venous hypertension. Reference separate dictation from MRV head for additional details. POS: [facility]
--- NOTE | 2019-08-12 16:11 | PDOC.FPRHP ---
- History of Present Illness Chief Complaint: Loss of Consciousness History of Present Illness: 59-year-old male recently discharged on 08/09 following an intracranial hemorrhage in the right parietal lobe with subarachnoid extension and history of seizure disorder with breakthrough focal seizures, presented to the emergency department after being found down at home by family members. Patient was found to have a blood pressure of 240/90 with unreactive pupils. Patient had a couple seizures in route to the hospital. He received a multiple doses of versed and fentanyl in route to the hospital. Patient was intubated prior to presentation. CT upon arrival showed worsening right cerebral hemorrhages. He was seen by neurosurgery who initially recommended neurology consult and considered heparin infusion versus mechanical thrombectomy. However they felt that considering the patients condition and lack of neurology team in house transferring the patient was in his best interest at this time. - Allergies/Adverse Reactions Allergies Allergy/AdvReac Type Severity Reaction Status Date / Time No Known Drug Allergies Allergy Verified 08/12/19 11:13 - Home Medications Medication Instructions Recorded Confirmed Type levETIRAcetam [Keppra] 1,000 mg PO BID 09/16/13 08/12/19 History Amlodipine [Norvasc] 10 mg PO DAILY 08/07/19 08/12/19 History Fish Oil 1,000 mg PO DAILY 08/07/19 08/12/19 History Gabapentin 800 mg PO TID 08/07/19 08/12/19 History Omeprazole 40 mg PO DAILY 08/07/19 08/12/19 History traZODone HCl [Trazodone HCl] 50 mg PO HS 08/07/19 08/12/19 History Phenytoin Sodium Extended 300 mg PO HS #30 cap 08/09/19 08/12/19 Rx [Dilantin] - History PMHx: PSHx: FHx: Social: - Review of Systems ROS unobtainable: due to endotracheal tube - Vital signs BP: 102/65, Pulse: 51, Resp: 20, Pain: UTR, O2 sat: 98 - Physical Exam -Constitutional: Unresponsive, intubated -HEENT: pupils pinpoint and unreactive Neck: trachea midline -Heart: Bradycardic, no murmur Lungs: CTAB -Lungs: Equal chest rise bilaterally, breath sounds heard in all whitley Abdomen: soft, bowel sounds present, no masses/distention -Neurological: No babinski response, does not follow commands, when off drip was moving all 4 extremities Heme/Lymphatic: no unusual bruising or bleeding, no purpura, no petechia -Psychiatric: Unable to assess FMR H&P: Results - Labs Result Diagrams: 08/12/19 17:07 08/12/19 10:12 Lab results: WBC 10.6 thou/uL (4.8-10.8) 08/12/19 10:12 Hgb 17.6 g/dL (14.0-18.0) 08/12/19 10:12 Hct 51.0 % (42.0-52.0) 08/12/19 10:12 MCV 96.6 fL (78.0-98.0) 08/12/19 10:12 Plt Count 154 thou/uL (130-400) 08/12/19 10:12 Neutrophils % 68.7 % (42.0-75.0) 08/12/19 10:12 ABG pH 7.29 (7.35-7.45) L 08/12/19 10:45 ABG pCO2 41.1 mmHg (35.0-45.0) 08/12/19 10:45 ABG pO2 133.3 mmHg (> 80.0) H 08/12/19 10:45 Sodium 136 mmol/L (136-145) 08/12/19 10:12 Potassium 3.9 mmol/L (3.5-5.1) 08/12/19 10:12 Chloride 103 mmol/L (98-107) 08/12/19 10:12 Carbon Dioxide 19 mmol/L (23-31) L 08/12/19 10:12 BUN 21 mg/dL (8.4-25.7) 08/12/19 10:12 Creatinine 1.55 mg/dL (0.7-1.3) H 08/12/19 10:12 Glucose 199 mg/dL (80-115) H 08/12/19 10:12 Calcium 8.9 mg/dL (7.8-10.44) 08/12/19 10:12 Total Bilirubin 0.5 mg/dL (0.2-1.2) 08/12/19 10:12 AST 27 U/L (5-34) 08/12/19 10:12 ALT 24 U/L (8-55) 08/12/19 10:12 Alkaline Phosphatase 79 U/L (40-110) 08/12/19 10:12 Creatine Kinase 203 U/L (30-200) H 08/12/19 10:12 Serum Total Protein 8.3 g/dL (5.8-8.1) H 08/12/19 10:12 Albumin 4.2 g/dL (3.4-4.8) 08/12/19 10:12 Urine Ketones Negative mg/dL (Negative) 08/12/19 10:47 Urine Blood 2+ (Negative) A 08/12/19 10:47 Urine Nitrite Negative (Negative) 08/12/19 10:47 Ur Leukocyte Esterase Negative Yoshi/uL (Negative) 08/12/19 10:47 Urine RBC 7-10 HPF (0-3) A 08/12/19 10:47 Urine WBC 4-6 HPF (0-3) A 08/12/19 10:47 Ur Squamous Epith Cells 0-3 HPF (0-3) 08/12/19 10:47 Urine Bacteria None Seen HPF (None Seen) 08/12/19 10:47 - Radiology Interpretation CT scan - head Status: report reviewed by me (two areas of hemorrhage in the right cerebral cortical white matter indicating worsen race cerebral prank more hemorrhages) FMR H&P: A/P - Problem List (1) ICH (intracerebral hemorrhage) Status: Acute Code(s): I61.9 - NONTRAUMATIC INTRACEREBRAL HEMORRHAGE, UNSPECIFIED Qualifiers: Intracerebral hemorrhage etiology: nontraumatic Cerebral hemorrhage location: cerebral hemisphere, unspecified portion Laterality: right Qualified Code(s): I61.2 - Nontraumatic intracerebral hemorrhage in hemisphere, unspecified (2) Partial seizure, motor Status: Acute Code(s): G40.109 - LOCAL-REL SYMPTC EPI W SIMP PRT SEIZ,NOT NTRCT, W/O STAT EPI (3) H/O traumatic brain injury Status: Chronic Code(s): Z87.820 - PERSONAL HISTORY OF TRAUMATIC BRAIN INJURY (4) HTN (hypertension) Status: Chronic Code(s): I10 - ESSENTIAL (PRIMARY) HYPERTENSION Qualifiers: Hypertension type: essential hypertension Qualified Code(s): I10 - Essential (primary) hypertension - Plan Subarachnoid hemorrhage - Intubated patient, admit to ICU - MRI and MRA venogram ordered - Consult neurology - Continue Dilantin and Keppra - Seizure protocol - Continue fentanyl drip and monitor blood pressure VTE PPX: SCDs GI PPX: protonics Diet: NPO PCP: CC Dispo: admit to ICU with likely transferred to center with in-house neurology team FMR H&P: Upper Level - Pertinent history 59yo male with pmh of SAH recently discharged to rehab on 08/09 was found down today unresponsive. Initial BP was 240/90, pupils unreactive and pt was seizing. Pt received multiple doses of versed, fentanyl and was intubated prior to presentation to ED. Pt has had a CT showing worsening right cerebral parenchymal hemorrhages. PE: Pulm: CTA b/l CV: RRR, no murmurs Neuro: pinpoint pupils b/l. Pt does not withdrawal to pain however he just received dose of ketamine and was moving b/l UE & LE prior to this but not following commands. SAH with worsening right cerebral parenchymal hemorrhages. Neurosurgery following. Consulted Neurology as well. Pt intubated on scene for seizures and is currently intubated and sedated with Fentanyl. Will monitor BP closely, consider precedex if pt becomes hypotensive. MRI and MRA venogram ordered. It appears neurosurgery would like pt to be transferred to [facility]. Arrangements are being made. Seizures. Initiate seizure protocol. Initial Dilantin level low, was given 1g in ED. Continue Dilantin and Keppra DVT ppx: SCDs GI ppx: Protonix Diet: NPO PCP: CC - Plan Date/Time: 08/12/19 1611 I, Mariza Tsai, have evaluated this patient and agree with findings/plan as outlined by hr internship resident. Pertinent changes/additions are listed here. Addendum - Attending - Attending Attestation Date/Time: 08/13/19 [id number] I personally evaluated the patient and discussed the management with Dr. Whitaker. I agree with the History, Examination, Assessment and Plan documented above with any addition or exceptions noted below. See my event notes. Greatly appreciate our critical care and neurosurgery colleagues and their expertise. I have deferred management of the ICH to them, and neurosurgery has elected to transfer to a higher level of care.
[2019-08-12 16:13] LABS: Actual Bicarbonate (HCO3a) 19.7 mEq/L (22-28); Base Excess (BEa) -1.9 mEq/L (-2.0 to +3.0); CO2 Tension 26.8 mmHg (35.0-45.0); Calcium, Ionized 1.12 mmol/L (1.12-1.30); Carboxyhemoglobin (COHb) 1.5 gm% (0.0-3.0); Hemoglobin (Hb) 16.2 g/dL (14.0-18.0); O2 Tension (PaO2) 165.7 mmHg (> 80.0); pH, Arterial 7.48 (7.35-7.45)
--- NOTE | 2019-08-12 16:19 | MRI ---
MRV BRAIN WITHOUT CONTRAST: 3D Time of Flight Technique Performed 08/12/19 INDICATION: Parenchymal hemorrhage. FINDINGS: Examination is performed in conjunction with noncontrast brain MRI. 3D [id number] imaging reveals appropriate flow related signal within the right transverse sinus, right sigmoid sinus and right internal jugular vein, as well as involving the straight sinus. There is a generalized mildly reduced T1 signal seen within the mid to posterior aspect of the superi or sagittal sinus and no discernible signal of the anterior aspect of the superior sagittal sinus. Th is indicates diffuse thrombosis of the superior sagittal sinus with component of intrinsic T1 signal related to dural vein thrombus of the mid to posterior aspect of the superior sagittal sinus. There i s absence of flow related signal within the left transverse, and sigmoid sinuses as well as within th e left internal jugular vein. Parenchymal hemorrhage up to the right cerebral hemisphere are indicated. IMPRESSION: Diffuse dural vein thrombus involving the superior sagittal sinus, left transverse and sigmoid sinuse s and left internal jugular vein. A component of increased T1 signal related to dural vein thrombus i s present involving the mid to posterior aspect of the superior sagittal sinus. POS: [facility]
[2019-08-12 17:28] LABS: Hemoglobin 16.5 g/dL (14.0-18.0); Platelet Count 117 thou/uL (130-400)
--- NOTE | 2019-08-12 18:10 | CON ---
DATE OF CONSULTATION: 08/12/2019 This is 45 minutes of critical care time. CONSULTING PHYSICIAN: [facility] Service. HISTORY OF PRESENT ILLNESS: This patient was intubated for altered mental status. His case is somewhat complex from a neurology/neurosurgery perspective. He was in the hospital last weekend with a right parietal lobe intraparenchymal hematoma. Apparently with that, he has superior sagittal sinus, left transverse sinus, and left internal jugular vein thrombosis. Today, he came in with an extension of the parenchymal bleed. He was intubated for respiratory depression. He has been seen in consultation by the neurosurgical service. PAST MEDICAL HISTORY: 1. Hypertension. 2. Organic brain syndrome. 3. Seizure disorder. 4. Osteoarthritis. PAST SURGICAL HISTORY: Right hip replacement. SOCIAL HISTORY: Drinks beer regularly. He smokes cigarettes every couple of days. He uses marijuana. Does not use any other illicit drugs. ALLERGIES: NONE. MEDICATIONS: Prior to admission: 1. Trazodone. 2. Gabapentin. 3. Amlodipine. 4. Keppra. 5. Omeprazole. REVIEW OF SYSTEMS: Otherwise negative. PHYSICAL EXAMINATION: VITAL SIGNS: Pulse 53, blood pressure 124/77, O2 saturation 100%, and respiratory rate 20. GENERAL: He is currently intubated, paralyzed, and sedated. HEENT: Unremarkable. NECK: No adenopathy or JVD. LUNGS: Clear anteriorly. CARDIAC: S1 and S2, regular without murmur. ABDOMEN: Soft. EXTREMITIES: No clubbing, cyanosis, or edema. It is very difficult to ascertain his neurologic status because he is currently received Norcuron. LABORATORY DATA: Lung whitley are clear bilaterally. ET tube is in good position. Sodium 136, potassium 3.9, chloride 103, CO2 of 19, BUN 21, creatinine 1.6, glucose 199. A pH 7.29, pCO2 of 41, pO2 of 133. White blood cell count 10, hematocrit 51, and platelet count 154. ASSESSMENT: 1. Parenchymal brain bleed. 2. Extensive venous thrombosis. 3. Acute respiratory failure, requiring mechanical ventilation. PLAN: The patient will remain on supportive mechanical ventilation for his altered mental status. He is on nicardipine for blood pressure control. Dr. Torres feels that anticoagulation is indicated. He feels the patient may be better managed in the center that deals with these cases, so transfer to a different hospital is pending. For the time being, it looks like the patient is being anticoagulated by the neurosurgeons. I will leave that up to them. PROGNOSIS: Guarded. Job ID: [id number]
[2019-08-12 18:30] VITALS: BP 111/72
--- NOTE | 2019-08-12 19:01 | CON ---
DATE OF CONSULTATION: HISTORY OF PRESENT ILLNESS: Mr. Webster is a 59-year-old male, who was brought to the emergency department this morning. Family found him down, and emergency response was called. He was given a GCS of 4 on site and intubated. The EMS on-site stated that they saw visible seizure activity and gave Ativan at that time and intubated him following. The patient had a CT in the emergency department showing progression of a hemorrhage. Mr. Webster was admitted on the for intraparenchymal hemorrhage and seen by our colleagues. The bleed was stable and he was sent home at that time. I was called to see him. I saw him earlier this afternoon. He was on a ventilator and had fentanyl drip going. I had that turned off approximately 10 minutes after evaluation. The patient was moving all 4 extremities semipurposefully reaching towards the tube and trying to scratch his face. However, he was not following commands. His pupils are equal, round, and reactive to light and had a gag reflex. REVIEW OF SYSTEMS: Unable to obtain. MEDICATIONS: Unable to obtain. PAST MEDICAL HISTORY: Includes hypertension and history of traumatic brain injury including epilepsy. PAST SURGICAL HISTORY: Right hip replacement, back surgery. SOCIAL HISTORY: The patient drinks socially every week. Currently uses drug, marijuana, tobacco, cigarettes daily, and has smoked approximately 30 years and half a pack per day. PHYSICAL EXAMINATION: VITAL SIGNS: Blood pressure 97/68, heart rate 55, respirations 20, O2 saturations 98% on ventilator, and temperature was 97.7. CONSTITUTIONAL: The patient is currently intubated and sedated. RESPIRATIONS: He is intubated, but symmetric chest rise. NEUROLOGIC: The patient is somewhat sedated, but he is able to move all 4 extremities easily and smoothly. I do not see any lateralizing defects. He is moving somewhat purposefully trying to grasp the tube in his throat, but did not open his eyes and did not follow commands. His pupils are equal, round, and reactive to light. He has a gag reflex. IMAGING: CT brain, worsening right cerebral parenchymal hemorrhages. There are 2 areas, one approximately 3 cm and the second one more posteriorly is 3.7 cm. There is no evidence of midline shift or downward herniation. Encephalomalacia is seen in bilateral frontal lobes and left hydrocephalus. ASSESSMENT AND PLAN: After discussion with Dr. 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 The Hospitalist Medicine should admit him. He should be taken into the ICU with a for close monitoring and frequent neurologic status checks. We will need to maintain his blood pressure within a normal range. Neurology needs to be consulted. MRI and MR venogram of the brain should be obtained to assess the significance of the venous thrombosis. The recommended treatment for thrombosis is heparin, ideally, a goal PTT would be between 50 and 70. There is risk associated with treatment, but is the appropriate treatment. Given the patient's seizure activity, we will continue treatment with Keppra and his Dilantin level was a little low. If there are any further questions, please contact Neurosurgery Team. Job ID: [id number] MTDD
[2019-08-12] MEDS ORDERED: Famotidine/PF 20 mg/2ml Vial SLOW IVP SCH (21:00)
[2019-08-12] MEDS ORDERED: levETIRAcetam In NaCl (Iso-Os) 1,000 MG in Premix Bag 1 BAG IVPB SCH (21:00)
[2019-08-12] MEDS ORDERED: Fosphenytoin Sodium 150 MG in Sodium Chloride 0.9% 50 ML IVPB SCH (21:00)
[2019-08-12 21:50] VITALS: TEMP 98.6
[2019-08-13] MEDS ORDERED: Pantoprazole 40 MG VIAL IVP SCH (09:00)
== END 2019-08-12 21:50 | disposition short-term general hospital (02) | DRG 64 ==
LOC: ERS 10:07 → CCU 13:48
PROVIDERS: ADMIT Emergency Medicine; ATTEND Emergency Medicine
PROC: 5A1935Z Respiratory Ventilation, Less than 24 Consecutive Hours (ICD-10-PCS; principal; 2019-08-12)
PROC: 0BH17EZ Insertion of Endotracheal Airway into Trachea, Via Natural or Artificial Opening (ICD-10-PCS; 2019-08-12)
DX: I61.8 Other nontraumatic intracerebral hemorrhage (principal); J96.00 Acute respiratory failure, unspecified whether with hypoxia or hypercapnia; I10 Essential (primary) hypertension; G40.909 Epilepsy, unspecified, not intractable, without status epilepticus; M19.90 Unspecified osteoarthritis, unspecified site; Z96.641 Presence of right artificial hip joint; F17.210 Nicotine dependence, cigarettes, uncomplicated; I66.8 Occlusion and stenosis of other cerebral arteries; R29.705 NIHSS score 5; R40.2112 Coma scale, eyes open, never, at arrival to emergency department; R40.2212 Coma scale, best verbal response, none, at arrival to emergency department; R40.2322 Coma scale, best motor response, extension, at arrival to emergency department
CPT/HCPCS: 36415; 36416; 51702; 70450; 70544; 70551; 71045; 72125; 80053; 80177; 80185; 81003; 81015; 82550; 82805; 84484; 85025; 85610; 85730; 93005; 94002; 96361; 96365; 96366; 96374; 96375; 96376; J1644; J1885; J1953; J2060; J3010; J3490; Q2009

== ENCOUNTER 2019-09-27 12:59 | Outpatient (CLI) | payer OTHER ==
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
== END 2019-09-27 13:00 | disposition home or self-care (01) ==
LOC: TBSIIMAG 12:59
PROVIDERS: ATTEND Surgery
DX: S06.2X0S Diffuse traumatic brain injury without loss of consciousness, sequela (principal)
CPT/HCPCS: 70450

== ENCOUNTER 2021-01-08 11:02 | Emergency (ER) | payer OTHER ==
[2021-01-08 11:42] LABS: #Basophils 0.1 thou/uL (0.0-0.2); #Eosinphils 0.2 thou/uL (0.0-0.7); #Lymphocytes 1.7 thou/uL (1.20-3.40); #Monocytes 0.6 thou/uL (0.11-0.59); #Neutrophils 5.6 thou/uL (1.40-6.50); %Basophils 0.8 % (0.0-1.0); %Eosinophils 2.5 % (0.0-10.0); %Lymphocytes 20.6 % (21.0-51.0); %Monocytes 7.7 % (0.0-10.0); %Neutrophils 68.4 % (42.0-75.0); Hemoglobin 16.4 g/dL (14.0-18.0); Mean Corpuscular HGB CONC 33.9 g/dL (32.0-36.0); Mean Corpuscular Hemoglobin 32.8 pg (27.0-31.0); Mean Corpuscular Volume 96.8 fL (78.0-98.0); Mean Platelet Volume 7.6 fL (7.4-10.4); Platelet Count 148 thou/uL (130-400); RBC Distribution Width 11.9 % (11.5-14.5); Red Blood Cell (RBC) Count 5.02 mill/uL (4.70-6.10); White Blood Cell (WBC) Count 8.2 thou/uL (4.8-10.8)
--- NOTE | 2021-01-08 11:53 | CT ---
Exam: Head CT without contrast HISTORY: Altered mental status. History of seizures COMPARISON: none FINDINGS: Hemorrhage: No intraparenchymal hemorrhage or extra-axial hematoma. Brain parenchyma: Stable encephalomalacia and gliosis involving the left and right frontal lobe and l eft occipital lobe. Associated loss of phillips-white matter differentiation. Remainder the cerebrum demonstrates preservation of cortical phillips-white matter differentiation. Ventricular system: Stable configuration the ventricular system Calvarium: Intact. Sinuses and mastoid air cells: Adequate aeration. IMPRESSION: 1. No acute intracranial process 2. Stable encephalomalacia and gliosis of the cerebrum.
[2021-01-08 12:02] LABS: Bilirubin Negative (Negative); Blood, Urine 2+ (Negative); Clarity Clear (Clear); Glucose, Urine (Dipstick) Normal (Negative); Ketone, Urine Negative (Negative); Leukocyte Negative Leu/uL (Negative); Nitrite Negative (Negative); Protein, Urine (Dipstick) 300 mg/dL (Neg-Trace); RBC/HPF 21-50 HPF (0-3); Specific Gravity, Urine 1.014 (1.002-1.036); Squamous Epithelial 0-3 HPF (0-3); Urobilinogen Normal mg/dL (Less than 2)
[2021-01-08 12:04] LABS: Acetaminophen Less than 6.0 mcg/mL (10.0-30.0); Alcohol Less than 10 mg/dL (Less than 10); Salicylate Less than 8.0 mg/dL (15.0-30.0)
[2021-01-08 12:04] LABS: Bacteria/HPF 1+ HPF (None Seen)
[2021-01-08 12:05] LABS: Amphetamine Not Detected (NotDetected); Barbiturates Screen Detected (NotDetected); Benzodiazepine Screen Not Detected (NotDetected); Cocaine Metabolite Screen Not Detected (NotDetected); Medtox Control Line Valid? VALID (VALID); Medtox Reader # READER 4; Methadone Not Detected (NotDetected); Methamphetamine Not Detected (NotDetected); Opiate Screen Not Detected (NotDetected); Oxycodone Screen Not Detected (NotDetected); Phencyclidine (PCP) Not Detected (NotDetected); THC/Cannabinoid Screen Detected (NotDetected); Tricyclic Screen Not Detected (NotDetected)
[2021-01-08 12:05] LABS: ALT (SGPT) 38 U/L (8-55); AST (SGOT) 28 U/L (5-34); Albumin 4.4 g/dL (3.4-4.8); Alkaline Phosphatase 87 U/L (40-110); Anion Gap 16 mmol/L (10-20); BUN (Urea Nitrogen) 14 mg/dL (8.4-25.7); Bilirubin, Total 0.3 mg/dL (0.2-1.2); CK (CPK) 293 U/L (30-200); Calc. Creatinine Clearance 0 mL/min (70-130); Calcium 9.2 mg/dL (7.8-10.44); Carbon Dioxide 26 mmol/L (23-31); Chloride 102 mmol/L (98-107); Globulin 3.7 g/dL (2.4-3.5); Glucose 121 mg/dL (80-115); Lipase 27 U/L (8-78); Potassium 4.6 mmol/L (3.5-5.1); Protein, Total 8.1 g/dL (5.8-8.1); Sodium 139 mmol/L (136-145)
--- NOTE | 2021-01-08 12:05 | RAD ---
Exam: Chest one view HISTORY:Altered mental status Comparison: 08/12/2019 FINDINGS: Cardiac silhouette: Normal Aorta: Unremarkable Pulmonary vessels: Normal Costophrenic angles: Clear LUNGS: No masses or consolidation. Pneumothorax: None Osseous abnormalities: None IMPRESSION: No acute cardiopulmonary process.
[2021-01-08] MEDS ORDERED: Lorazepam 2 MG/ML VIAL ONE (13:40)
[2021-01-08] MEDS ORDERED: levETIRAcetam in NS 100 ML ONE (13:40)
--- NOTE | 2021-01-13 16:25 | EKG ---
Test Reason : Blood Pressure : / mmHG Vent. Rate : 060 BPM Atrial Rate : 060 BPM P-R Int : 154 ms QRS Dur : 084 ms QT Int : 416 ms P-R-T Axes : 028 -13 043 degrees QTc Int : 416 ms Normal sinus rhythm Minimal voltage criteria for LVH, may be normal variant Borderline ECG Confirmed by DELICIA SUGGS, JESSICA ([id number]), editor sound ROMINA DAMIAN ([id number]) on 01/13/2021 4:24:49 PM Referred By: Confirmed By:JESSICA NESBITT MD
== END 2021-01-08 14:58 | disposition home or self-care (01) ==
LOC: ERS 11:02
DX: G40.909 Epilepsy, unspecified, not intractable, without status epilepticus (principal); I10 Essential (primary) hypertension; F17.210 Nicotine dependence, cigarettes, uncomplicated
CPT/HCPCS: 36415; 70450; 71045; 80053; 80177; 80306; 80307; 81003; 81015; 82140; 82550; 83690; 83880; 84146; 84484; 85025; 93005; 96365; 96375; J1953; J2060

== ENCOUNTER 2021-07-03 13:13 | Outpatient (CLI) | payer OTHER | END 2021-07-03 13:14 | disposition home or self-care (01) | LOC: BICULT 13:13 | PROVIDERS: ATTEND Family Medicine | DX: N28.9 Disorder of kidney and ureter, unspecified (principal) | CPT/HCPCS: 76770 ==

== ENCOUNTER 2022-06-04 11:02 | Outpatient (CLI) | payer OTHER | END 2022-06-04 11:03 | disposition home or self-care (01) | LOC: MRI 11:02 | PROVIDERS: ATTEND Nurse Practitioner Family | DX: M47.816 Spondylosis without myelopathy or radiculopathy, lumbar region (principal); M54.6 Pain in thoracic spine; M47.811 Spondylosis without myelopathy or radiculopathy, occipito-atlanto-axial region; M47.812 Spondylosis without myelopathy or radiculopathy, cervical region; M50.31 Other cervical disc degeneration, high cervical region; M51.34 Other intervertebral disc degeneration, thoracic region; M25.78 Osteophyte, vertebrae; M47.814 Spondylosis without myelopathy or radiculopathy, thoracic region; M51.37 Other intervertebral disc degeneration, lumbosacral region; M51.27 Other intervertebral disc displacement, lumbosacral region; M48.07 Spinal stenosis, lumbosacral region; M47.815 Spondylosis without myelopathy or radiculopathy, thoracolumbar region; M51.35 Other intervertebral disc degeneration, thoracolumbar region; M48.05 Spinal stenosis, thoracolumbar region; M51.36 Other intervertebral disc degeneration, lumbar region; M48.061 Spinal stenosis, lumbar region without neurogenic claudication; M51.26 Other intervertebral disc displacement, lumbar region | CPT/HCPCS: 72070; 72148 ==

== ENCOUNTER 2022-10-07 17:28 | Inpatient (IN) | payer OTHER ==
[2022-10-07 18:54] LABS: #Eosinphils 0.4 thou/uL (0.0-0.7); #Lymphocytes 3.4 thou/uL (1.20-3.40); #Monocytes 0.9 thou/uL (0.11-0.59); #Neutrophils 6.6 thou/uL (1.40-6.50); %Basophils 0.2 % (0.0-1.0); %Eosinophils 3.4 % (0.0-10.0); %Monocytes 7.7 % (0.0-10.0); %Neutrophils 58.7 % (42.0-75.0); Hemoglobin 16.6 g/dL (14.0-18.0); Mean Corpuscular HGB CONC 33.8 g/dL (32.0-36.0); Mean Corpuscular Hemoglobin 31.9 pg (27.0-31.0); Mean Corpuscular Volume 94.3 fl (78.0-98.0); Mean Platelet Volume 7.9 fL (7.4-10.4); Platelet Count 210 10x3/uL (130-400); RBC Distribution Width 13.9 % (11.5-14.5); Red Blood Cell (RBC) Count 5.19 mill/uL (4.70-6.10); White Blood Cell (WBC) Count 11.2 10x3/uL (4.8-10.8)
[2022-10-07 19:10] LABS: Bilirubin Negative (Negative); Blood, Urine 3+ (Negative); Clarity Clear (Clear); Glucose, Urine (Dipstick) Normal (Negative); Ketone, Urine Negative (Negative); Leukocyte Negative Leu/uL (Negative); Nitrite Negative (Negative); Protein, Urine (Dipstick) 200 mg/dL (Neg-Trace); Specific Gravity, Urine 1.028 (1.002-1.036); Squamous Epithelial None Seen HPF (0-3); Urobilinogen Normal mg/dL (Less than 2)
[2022-10-07 19:24] LABS: ALT (SGPT) 46 U/L (8-55); AST (SGOT) 37 U/L (5-34); Albumin 4.5 g/dL (3.4-4.8); Alkaline Phosphatase 67 U/L (40-110); Anion Gap 21 mmol/L (10-20); BUN (Urea Nitrogen) 15 mg/dL (8.4-25.7); Bilirubin, Total 0.4 mg/dL (0.2-1.2); Calc. Creatinine Clearance 0 mL/min (70-130); Calcium 9.2 mg/dL (7.8-10.44); Carbon Dioxide 21 mmol/L (23-31); Chloride 100 mmol/L (98-107); Estimated GFR 47; Globulin 3.9 g/dL (2.4-3.5); Glucose 139 mg/dL (80-115); Potassium 4.1 mmol/L (3.5-5.1); Protein, Total 8.4 g/dL (5.8-8.1); Sodium 138 mmol/L (136-145)
[2022-10-07 19:27] LABS: Bacteria/HPF 1+ HPF (None Seen)
[2022-10-07 19:28] LABS: WBC/HPF 0-3 HPF (0-3)
[2022-10-08 02:42] VITALS: BMI 34.5
[2022-10-08 02:42] LABS: #Basophils 0.1 thou/uL (0.0-0.2); #Eosinphils 0.4 thou/uL (0.0-0.7); #Lymphocytes 2.5 thou/uL (1.20-3.40); #Monocytes 0.8 thou/uL (0.11-0.59); #Neutrophils 4.4 thou/uL (1.40-6.50); %Basophils 0.7 % (0.0-1.0); %Eosinophils 4.4 % (0.0-10.0); %Lymphocytes 30.9 % (21.0-51.0); %Monocytes 9.3 % (0.0-10.0); %Neutrophils 54.8 % (42.0-75.0); Hemoglobin 14.3 g/dL (14.0-18.0); Mean Corpuscular HGB CONC 34.6 g/dL (32.0-36.0); Mean Corpuscular Hemoglobin 32.7 pg (27.0-31.0); Mean Corpuscular Volume 94.4 fl (78.0-98.0); Mean Platelet Volume 7.3 fL (7.4-10.4); Platelet Count 154 10x3/uL (130-400); RBC Distribution Width 13.7 % (11.5-14.5); Red Blood Cell (RBC) Count 4.36 mill/uL (4.70-6.10); White Blood Cell (WBC) Count 8.1 10x3/uL (4.8-10.8)
[2022-10-08 02:47] LABS: Hemoglobin A1c 5.3 % (4.0-6.0)
[2022-10-08 02:49] LABS: INR-International Normal Ratio 3.7; Prothrombin Time 38.1 sec (12.0-14.7)
[2022-10-08 03:10] LABS: ALT (SGPT) 37 U/L (8-55); AST (SGOT) 26 U/L (5-34); Albumin 3.7 g/dL (3.4-4.8); Alkaline Phosphatase 60 U/L (40-110); Anion Gap 16 mmol/L (10-20); BUN (Urea Nitrogen) 14 mg/dL (8.4-25.7); Bilirubin, Total 0.6 mg/dL (0.2-1.2); Calc. Creatinine Clearance 77 mL/min (70-130); Calcium 8.7 mg/dL (7.8-10.44); Carbon Dioxide 24 mmol/L (23-31); Chloride 100 mmol/L (98-107); Estimated GFR 60; Globulin 3.3 g/dL (2.4-3.5); Glucose 110 mg/dL (80-115); Potassium 3.5 mmol/L (3.5-5.1); Sodium 136 mmol/L (136-145)
[2022-10-08 03:11] LABS: Cardiac Risk 5.6 (Less than 4.5)
[2022-10-08] MEDS ORDERED: Lactated Ringer's 500 ML IV SCH (04:15)
[2022-10-08] MEDS: Acetaminophen 500 MG TAB PO SCH ×3 (08:52→20:54)
[2022-10-08] MEDS: Amlodipine 10 MG TAB PO SCH (08:53)
[2022-10-08] MEDS: Aspirin 81 mg Enteric Coated Tablet PO SCH (08:53)
[2022-10-08] MEDS: levETIRAcetam 500 MG TAB PO SCH ×2 (08:53→20:54)
[2022-10-08] MEDS ORDERED: Non-Formulary Item 1 EACH (Warfarin Sodium [Warfarin Sodium] 4 MG Tablet) PO SCH (09:00)
[2022-10-08] MEDS ORDERED: Iopamidol 370 76% 100 ML VIAL ONE (11:14)
[2022-10-08] MEDS ORDERED: Atorvastatin Calcium 40 MG TAB PO SCH (21:00)
[2022-10-08] MEDS ORDERED: Simvastatin 10 MG TAB PO SCH (21:00)
[2022-10-08] MEDS ORDERED: Rosuvastatin 20 MG TAB PO SCH (21:00)
[2022-10-09 05:47] LABS: INR-International Normal Ratio 3.1; Prothrombin Time 33.5 sec (12.0-14.7)
[2022-10-09 06:01] LABS: Anion Gap 12 mmol/L (10-20); BUN (Urea Nitrogen) 14 mg/dL (8.4-25.7); Calc. Creatinine Clearance 70 mL/min (70-130); Calcium 9.2 mg/dL (7.8-10.44); Carbon Dioxide 26 mmol/L (23-31); Chloride 102 mmol/L (98-107); Estimated GFR 53; Glucose 99 mg/dL (80-115); Potassium 4.1 mmol/L (3.5-5.1); Sodium 136 mmol/L (136-145)
[2022-10-09] MEDS: Aspirin 81 mg Enteric Coated Tablet PO SCH (08:46)
[2022-10-09] MEDS: Acetaminophen 500 MG TAB PO SCH (08:46)
[2022-10-09] MEDS: Amlodipine 10 MG TAB PO SCH (08:47)
[2022-10-09] MEDS: levETIRAcetam 500 MG TAB PO SCH (08:47)
[2022-10-09] MEDS ORDERED: Clopidogrel Bisulfate 300 MG TAB PO SCH (11:15)
[2022-10-09] MEDS ORDERED: Famotidine 20 MG TAB PO SCH ×3 (11:15→21:00)
[2022-10-09 11:56] VITALS: BP 116/71; TEMP 98.1
[2022-10-10] MEDS ORDERED: Clopidogrel Bisulfate 75 MG TAB PO SCH (09:00)
== END 2022-10-09 15:23 | disposition home or self-care (01) | DRG 65 ==
LOC: ERS 17:28 → NEURO 22:09 → OBSVTOIN 10-08 15:31
PROVIDERS: ADMIT Student in an Organized Health Care Education/Training Program; ATTEND Student in an Organized Health Care Education/Training Program
DX: I63.9 Cerebral infarction, unspecified (principal); N17.9 Acute kidney failure, unspecified; G40.909 Epilepsy, unspecified, not intractable, without status epilepticus; G89.29 Other chronic pain; I10 Essential (primary) hypertension; M19.90 Unspecified osteoarthritis, unspecified site; Z96.643 Presence of artificial hip joint, bilateral; F17.210 Nicotine dependence, cigarettes, uncomplicated; E78.5 Hyperlipidemia, unspecified; R31.29 Other microscopic hematuria; K21.9 Gastro-esophageal reflux disease without esophagitis; Z20.822 Contact with and (suspected) exposure to COVID-19; Z79.899 Other long term (current) drug therapy; Z98.890 Other specified postprocedural states
CPT/HCPCS: 36415; 70450; 70496; 70498; 70551; 80048; 80053; 80061; 81003; 81015; 83036; 84443; 84484; 85025; 85610; 90471; 90732; 93005; 93306; G0009; G0378; J7120; Q9967; U0003; U0005

== ENCOUNTER 2022-10-20 12:01 | Emergency (ER) | payer OTHER ==
[2022-10-20 13:19] LABS: #Eosinphils 0.1 thou/uL (0.0-0.7); #Lymphocytes 1.4 thou/uL (1.20-3.40); #Monocytes 0.8 thou/uL (0.11-0.59); #Neutrophils 9.2 thou/uL (1.40-6.50); %Basophils 0.1 % (0.0-1.0); %Eosinophils 0.7 % (0.0-10.0); %Lymphocytes 11.9 % (21.0-51.0); %Monocytes 6.9 % (0.0-10.0); %Neutrophils 80.5 % (42.0-75.0); Mean Corpuscular HGB CONC 34.7 g/dL (32.0-36.0); Mean Corpuscular Hemoglobin 32.2 pg (27.0-31.0); Mean Corpuscular Volume 92.9 fl (78.0-98.0); Mean Platelet Volume 7.8 fL (7.4-10.4); Platelet Count 174 10x3/uL (130-400); RBC Distribution Width 13.9 % (11.5-14.5); Red Blood Cell (RBC) Count 2.48 mill/uL (4.70-6.10); White Blood Cell (WBC) Count 11.4 10x3/uL (4.8-10.8)
[2022-10-20 13:30] LABS: INR-International Normal Ratio 5.2; PTT 46.3 sec (22.9-36.1)
[2022-10-20 13:38] LABS: ALT (SGPT) 30 U/L (8-55); AST (SGOT) 26 U/L (5-34); Albumin 3.6 g/dL (3.4-4.8); Alkaline Phosphatase 45 U/L (40-110); Anion Gap 13 mmol/L (10-20); BUN (Urea Nitrogen) 28 mg/dL (8.4-25.7); Bilirubin, Total 0.3 mg/dL (0.2-1.2); Calc. Creatinine Clearance 0 mL/min (70-130); Calcium 8.5 mg/dL (7.8-10.44); Carbon Dioxide 22 mmol/L (23-31); Chloride 105 mmol/L (98-107); Estimated GFR 61; Globulin 2.7 g/dL (2.4-3.5); Glucose 122 mg/dL (80-115); Potassium 4.2 mmol/L (3.5-5.1); Protein, Total 6.3 g/dL (5.8-8.1); Sodium 136 mmol/L (136-145)
[2022-10-20 15:40] LABS: SARS-CoV-2 NAA Rapid Test DETECTED (NotDetected)
== END 2022-10-20 16:30 | disposition home or self-care (01) ==
LOC: ERS 12:01
DX: I63.9 Cerebral infarction, unspecified (principal); R11.10 Vomiting, unspecified; I10 Essential (primary) hypertension; F17.210 Nicotine dependence, cigarettes, uncomplicated; Z79.01 Long term (current) use of anticoagulants; Z20.822 Contact with and (suspected) exposure to COVID-19
CPT/HCPCS: 36415; 70450; 71045; 80053; 84484; 85025; 85610; 85730; 93005; 96360; 96361

== ENCOUNTER 2022-11-14 11:13 | Inpatient (IN) | payer OTHER ==
[2022-11-14 12:54] LABS: #Eosinphils 0.2 thou/uL (0.0-0.7); #Lymphocytes 1.5 thou/uL (1.20-3.40); #Monocytes 0.5 thou/uL (0.11-0.59); #Neutrophils 4.6 thou/uL (1.40-6.50); %Basophils 0.6 % (0.0-1.0); %Lymphocytes 21.3 % (21.0-51.0); %Monocytes 7.8 % (0.0-10.0); %Neutrophils 67.5 % (42.0-75.0); Hemoglobin 5.3 g/dL (14.0-18.0); Mean Corpuscular HGB CONC 30.5 g/dL (32.0-36.0); Mean Corpuscular Hemoglobin 24.1 pg (27.0-31.0); Mean Platelet Volume 9.4 fL (7.4-10.4); Platelet Count 247 10x3/uL (130-400); RBC Distribution Width 23.5 % (11.5-14.5); Red Blood Cell (RBC) Count 2.18 mill/uL (4.70-6.10); White Blood Cell (WBC) Count 6.8 10x3/uL (4.8-10.8)
[2022-11-14 13:02] LABS: ALT (SGPT) 16 U/L (8-55); AST (SGOT) 16 U/L (5-34); Albumin 3.9 g/dL (3.4-4.8); Alkaline Phosphatase 65 U/L (40-110); Anion Gap 12 mmol/L (10-20); BUN (Urea Nitrogen) 14 mg/dL (8.4-25.7); Bilirubin, Total 0.6 mg/dL (0.2-1.2); CK (CPK) 127 U/L (30-200); Calc. Creatinine Clearance 0 mL/min (70-130); Calcium 8.7 mg/dL (7.8-10.44); Carbon Dioxide 25 mmol/L (23-31); Chloride 102 mmol/L (98-107); Estimated GFR 66; Globulin 3.2 g/dL (2.4-3.5); Glucose 94 mg/dL (80-115); Protein, Total 7.1 g/dL (5.8-8.1); Sodium 135 mmol/L (136-145)
[2022-11-14 13:10] LABS: INR-International Normal Ratio 2.2; Prothrombin Time 25.4 sec (12.0-14.7)
[2022-11-14 13:11] LABS: PTT 30.6 sec (22.9-36.1)
[2022-11-14] MEDS ORDERED: Pantoprazole 40 MG VIAL ONE (13:46)
[2022-11-14] MEDS ORDERED: [UNRECOGNIZED DRUG - OTHER] IV SCH (14:00)
[2022-11-14] MEDS ORDERED: HUMAN PROTHROMBIN COMPLX IV SCH (14:00)
[2022-11-14] MEDS ORDERED: HUM PROTHROMBIN CPLX IV SCH (14:00)
[2022-11-14] MEDS ORDERED: Lactated Ringer's 1,000 ML IV SCH (14:45)
[2022-11-14 15:56] LABS: Bilirubin Negative (Negative); Blood, Urine Trace (Negative); Glucose, Urine (Dipstick) Negative (Negative); Ketone, Urine Negative (Negative); Leukocyte Negative (Negative); Nitrite Negative (Negative); Protein, Urine (Dipstick) Negative (Neg-Trace); Urobilinogen 0.2 mg/dL (Less than 2)
[2022-11-14 16:13] LABS: Clarity Clear (Clear)
[2022-11-14 18:13] VITALS: BMI 33.0
[2022-11-14] MEDS: Acetaminophen 500 MG TAB PO SCH (20:38)
[2022-11-14] MEDS: levETIRAcetam 500 MG TAB PO SCH (20:38)
[2022-11-14] MEDS ORDERED: levETIRAcetam in NS 1,500 MG in Premix Bag 1 BAG IVPB SCH (21:00)
[2022-11-14] MEDS ORDERED: levETIRAcetam in NS 500 MG in Premix Bag 1 BAG IVPB SCH (21:00)
[2022-11-14] MEDS ORDERED: Pantoprazole 40 MG VIAL IVP SCH (21:00)
[2022-11-14] MEDS ORDERED: levETIRAcetam 500 MG TAB PO SCH (21:15)
[2022-11-15 01:19] LABS: Hemoglobin 7.9 g/dL (14.0-18.0)
[2022-11-15 06:15] LABS: #Eosinphils 0.3 thou/uL (0.0-0.7); #Lymphocytes 2.2 thou/uL (1.20-3.40); #Monocytes 0.6 thou/uL (0.11-0.59); #Neutrophils 3.9 thou/uL (1.40-6.50); %Basophils 0.5 % (0.0-1.0); %Lymphocytes 31.5 % (21.0-51.0); %Monocytes 8.2 % (0.0-10.0); %Neutrophils 55.8 % (42.0-75.0); Hemoglobin 8.3 g/dL (14.0-18.0); Mean Corpuscular HGB CONC 31.1 g/dL (32.0-36.0); Mean Corpuscular Hemoglobin 25.7 pg (27.0-31.0); Mean Corpuscular Volume 82.5 fl (78.0-98.0); Mean Platelet Volume 10.4 fL (7.4-10.4); Platelet Count 214 10x3/uL (130-400); RBC Distribution Width 20.9 % (11.5-14.5); Red Blood Cell (RBC) Count 3.22 mill/uL (4.70-6.10)
[2022-11-15 06:53] LABS: ALT (SGPT) 15 U/L (8-55); AST (SGOT) 13 U/L (5-34); Albumin 3.7 g/dL (3.4-4.8); Alkaline Phosphatase 59 U/L (40-110); Anion Gap 12 mmol/L (10-20); BUN (Urea Nitrogen) 15 mg/dL (8.4-25.7); Bilirubin, Total 1.1 mg/dL (0.2-1.2); Calc. Creatinine Clearance 80 mL/min (70-130); Calcium 8.8 mg/dL (7.8-10.44); Carbon Dioxide 22 mmol/L (23-31); Chloride 105 mmol/L (98-107); Estimated GFR 66; Glucose 90 mg/dL (80-115); Potassium 4.1 mmol/L (3.5-5.1); Protein, Total 6.7 g/dL (5.8-8.1); Sodium 135 mmol/L (136-145)
[2022-11-15] MEDS ORDERED: FLU VACC QS2022-23(6MOS UP)/PF 60 MCG/0.5 ML SYRINGE IM ONE (09:00)
[2022-11-15] MEDS: levETIRAcetam 500 MG TAB PO SCH ×2 (09:01→22:48)
[2022-11-15] MEDS: Amlodipine 10 MG TAB PO SCH (09:02)
[2022-11-15] MEDS: Acetaminophen 500 MG TAB PO SCH ×3 (09:03→22:49)
[2022-11-15] MEDS ORDERED: levETIRAcetam 500 MG TAB PO SCH ×2 (10:21→10:30)
[2022-11-15] MEDS ORDERED: Iopamidol-370 76% 500 ML 1 ML ONE (14:27)
[2022-11-15 20:26] LABS: Hemoglobin 9.6 g/dL (14.0-18.0); Platelet Count 199 10x3/uL (130-400)
[2022-11-16 07:44] LABS: ALT (SGPT) 12 U/L (8-55); AST (SGOT) 16 U/L (5-34); Albumin 3.9 g/dL (3.4-4.8); Alkaline Phosphatase 60 U/L (40-110); Anion Gap 15 mmol/L (10-20); BUN (Urea Nitrogen) 14 mg/dL (8.4-25.7); Bilirubin, Total 0.7 mg/dL (0.2-1.2); Calc. Creatinine Clearance 83 mL/min (70-130); Carbon Dioxide 20 mmol/L (23-31); Chloride 107 mmol/L (98-107); Estimated GFR 69; Globulin 3.3 g/dL (2.4-3.5); Glucose 90 mg/dL (80-115); Potassium 4.6 mmol/L (3.5-5.1); Protein, Total 7.2 g/dL (5.8-8.1); Sodium 137 mmol/L (136-145)
[2022-11-16 07:46] LABS: Hemoglobin 9.8 g/dL (14.0-18.0); Mean Corpuscular HGB CONC 32.9 g/dL (32.0-36.0); Mean Corpuscular Hemoglobin 26.9 pg (27.0-31.0); Mean Corpuscular Volume 81.9 fl (78.0-98.0); Mean Platelet Volume 11.1 fL (7.4-10.4); Platelet Count 197 10x3/uL (130-400); RBC Distribution Width 20.9 % (11.5-14.5); Red Blood Cell (RBC) Count 3.65 mill/uL (4.70-6.10)
[2022-11-16 08:15] LABS: #Eosinphils 0.4 thou/uL (0.0-0.7); #Lymphocytes 2.3 thou/uL (1.20-3.40); #Monocytes 0.6 thou/uL (0.11-0.59); #Neutrophils 4.7 thou/uL (1.40-6.50); %Basophils 0.5 % (0.0-1.0); %Eosinophils 5.1 % (0.0-10.0); %Lymphocytes 28.3 % (21.0-51.0); %Monocytes 7.9 % (0.0-10.0); %Neutrophils 58.2 % (42.0-75.0); Anisocytosis SLIGHT = 6-15 cells (100X) (0-5/hpf); Hypochromia SLIGHT = 6-15 cells (100X) (0-5/hpf); Large Platelets SLIGHT; MDiff Complete? YES; Microcytosis SLIGHT = 6-15 cells (100X) (0-5/hpf); Platelet Morphology Comment Appears Adequate; Polychromasia SLIGHT = 2-3 cells (100X) (0-2/hpf)
[2022-11-16] MEDS: levETIRAcetam 500 MG TAB PO SCH (08:54)
[2022-11-16] MEDS: Acetaminophen 500 MG TAB PO SCH (08:54)
[2022-11-16] MEDS: Amlodipine 10 MG TAB PO SCH (08:55)
[2022-11-16 11:55] VITALS: TEMP 98.3
[2022-11-16 12:35] VITALS: BP 114/72
== END 2022-11-16 13:56 | disposition home or self-care (01) | DRG 812 ==
LOC: ERS 11:13 → ERHOLD 13:29 → T4-A 17:24
PROVIDERS: ADMIT Family Medicine; ATTEND Family Medicine
PROC: 30233N1 Transfusion of Nonautologous Red Blood Cells into Peripheral Vein, Percutaneous Approach (ICD-10-PCS; principal; 2022-11-14)
DX: D64.9 Anemia, unspecified (principal); I69.354 Hemiplegia and hemiparesis following cerebral infarction affecting left non-dominant side; B18.2 Chronic viral hepatitis C; G40.909 Epilepsy, unspecified, not intractable, without status epilepticus; F17.210 Nicotine dependence, cigarettes, uncomplicated; Z96.643 Presence of artificial hip joint, bilateral; Z79.02 Long term (current) use of antithrombotics/antiplatelets; I25.2 Old myocardial infarction
CPT/HCPCS: 36415; 36416; 36430; 71045; 74177; 80053; 80177; 81003; 82105; 82550; 83880; 84484; 85025; 85610; 85730; 86850; 86900; 86901; 93005; 94760; 96374; 96375; C9113; J7168; P9016; Q9967; U0003; U0005

== ENCOUNTER 2023-04-29 12:07 | Emergency (ER) | payer OTHER ==
[2023-04-29] MEDS ORDERED: LORazepam 2 MG/ML SYR.(CARPUJECT) ONE (12:13)
[2023-04-29] MEDS ORDERED: Ketamine 50 MG/ML (10ML VIAL) ONE (12:14)
[2023-04-29] MEDS ORDERED: Naloxone HCl 2 mg/2 ml Syringe ONE (12:14)
[2023-04-29] MEDS ORDERED: Propofol 1,000 MG/100 ML VIAL IV ONE ×3 (12:19→15:34)
[2023-04-29] MEDS ORDERED: Rocuronium Bromide 10 MG/ML (10ML VIAL) ONE (12:21)
[2023-04-29 12:34] LABS: #Eosinphils 0.2 thou/uL (0.0-0.7); #Monocytes 0.5 thou/uL (0.11-0.59); #Neutrophils 6.4 thou/uL (1.40-6.50); %Basophils 0.5 % (0.0-1.0); %Eosinophils 2.1 % (0.0-10.0); %Lymphocytes 12.4 % (21.0-51.0); %Monocytes 6.5 % (0.0-10.0); %Neutrophils 78.3 % (42.0-75.0); Hemoglobin 11.9 g/dL (14.0-18.0); Mean Corpuscular HGB CONC 31.6 g/dL (32.0-36.0); Mean Corpuscular Hemoglobin 27.7 pg (27.0-31.0); Mean Corpuscular Volume 87.9 fl (78.0-98.0); Mean Platelet Volume 9.1 fL (7.4-10.4); Platelet Count 171 10x3/uL (130-400); RBC Distribution Width 20.3 % (11.5-14.5); Red Blood Cell (RBC) Count 4.29 mill/uL (4.70-6.10); White Blood Cell (WBC) Count 8.1 10x3/uL (4.8-10.8)
[2023-04-29 12:48] LABS: Actual Bicarbonate (HCO3a) 18.9 mEq/L (22-28); Analyzer IN Cardio ER; Base Excess (BEa) -4.9 mEq/L (-2.0 to +3.0); CO2 Tension 31.8 mmHg (35.0-45.0); Calcium, Ionized (arterial) 1.11 mmol/L (1.12-1.30); Carboxyhemoglobin (COHb) 2.5 gm% (0.0-3.0); Hematocrit-ABG 39 % (42.0-52.0); Hemoglobin (Hb) 13.3 g/dL (14.0-18.0); O2 Tension (PaO2), arterial 436.8 mmHg (> 80.0); Potassium - ABG Lab 4.46 mmol/L (3.70-5.30); pH, Arterial 7.393 (7.35-7.45)
[2023-04-29 12:54] LABS: Puncture Site RRA
[2023-04-29] MEDS ORDERED: levETIRAcetam 500 MG/5 ML VIAL ONE (12:54)
[2023-04-29 12:56] LABS: ALT (SGPT) 16 U/L (8-55); AST (SGOT) 21 U/L (5-34); Albumin 3.7 g/dL (3.4-4.8); Alkaline Phosphatase 46 U/L (40-110); Anion Gap 15 mmol/L (10-20); BUN (Urea Nitrogen) 17 mg/dL (8.4-25.7); Bilirubin, Total 0.2 mg/dL (0.2-1.2); CK (CPK) 527 U/L (30-200); Calc. Creatinine Clearance 0 mL/min (70-130); Carbon Dioxide 24 mmol/L (23-31); Chloride 106 mmol/L (98-107); Estimated GFR 55; Globulin 3.1 g/dL (2.4-3.5); Glucose 87 mg/dL (80-115); Potassium 4.7 mmol/L (3.5-5.1); Protein, Total 6.8 g/dL (5.8-8.1); Sodium 140 mmol/L (136-145)
[2023-04-29 13:00] LABS: PTT 41.7 sec (22.9-36.1)
[2023-04-29 13:01] LABS: INR-International Normal Ratio 4.8; Prothrombin Time 46.9 sec (12.0-14.7)
[2023-04-29 13:32] LABS: Bacteria/HPF None Seen HPF (None Seen); Bilirubin Negative (Negative); Blood, Urine 3+ (Negative); CAUTI Indications for Culture Alt mental st,lethar; Clarity Clear (Clear); Glucose, Urine (Dipstick) Normal (Negative); Ketone, Urine Negative (Negative); Leukocyte Negative Leu/uL (Negative); Nitrite Negative (Negative); Protein, Urine (Dipstick) 300 mg/dL (Neg-Trace); Specific Gravity, Urine 1.018 (1.002-1.036); Squamous Epithelial None Seen HPF (0-3); Urobilinogen Normal mg/dL (Less than 2); WBC/HPF 0-3 HPF (0-3)
[2023-04-29 13:33] LABS: Amphetamine Not Detected (NotDetected); Barbiturates Screen Not Detected (NotDetected); Benzodiazepine Screen Not Detected (NotDetected); Cocaine Metabolite Screen Not Detected (NotDetected); Methadone Not Detected (NotDetected); Methamphetamine Not Detected (NotDetected); Opiate Screen Not Detected (NotDetected); Oxycodone Screen Not Detected (NotDetected); Phencyclidine (PCP) Not Detected (NotDetected); THC/Cannabinoid Screen Detected (NotDetected); Tricyclic Screen Not Detected (NotDetected); Urine Culture Reflex No No
[2023-04-29] MEDS ORDERED: Dexmedetomidine 400 MCG, Admixture Fee 1 EACH in Sodium Chloride 0.9% 96 ML IVPB SCH (15:00)
[2023-04-29 15:01] LABS: SARS-CoV-2 NAA Rapid Test Not Detected (NotDetected)
[2023-04-29 15:46] LABS: Lactic Acid 1.1 mmol/L (0.5-2.2)
== END 2023-04-29 15:46 | disposition short-term general hospital (02) ==
LOC: ERS 12:07
DX: G40.919 Epilepsy, unspecified, intractable, without status epilepticus (principal); I10 Essential (primary) hypertension; F17.210 Nicotine dependence, cigarettes, uncomplicated; Z79.01 Long term (current) use of anticoagulants; Z20.822 Contact with and (suspected) exposure to COVID-19
CPT/HCPCS: 31500; 36415; 36600; 51702; 70450; 71045; 80053; 80306; 81001; 82550; 82805; 83605; 84146; 84484; 85025; 85610; 85730; 87040; 87077; 87086; 87149; 93005; 94760; 96365; 96375; J1953; J2060; J2250; J2310; J2704; J3490

== ENCOUNTER 2023-05-16 10:20 | Outpatient (CLI) | payer OTHER ==
[~2023-05-16 10:20] MED LIST changes: -ISOVUE-370 76%-LOCM 1 ML ONE; +Iopamidol 370 76% 100 ML VIAL ONE
== END 2023-05-16 10:21 | disposition home or self-care (01) ==
LOC: BICCT 10:20
PROVIDERS: ATTEND Urology
DX: R31.29 Other microscopic hematuria (principal); N20.0 Calculus of kidney; R10.84 Generalized abdominal pain; K57.30 Diverticulosis of large intestine without perforation or abscess without bleeding
CPT/HCPCS: 74178; Q9967

== ENCOUNTER 2024-01-23 10:25 | Outpatient (CLI) | payer OTHER | END 2024-01-23 10:26 | disposition home or self-care (01) | LOC: BICULT 10:25 | PROVIDERS: ATTEND Internal Medicine Gastroenterology | DX: K74.60 Unspecified cirrhosis of liver (principal) | CPT/HCPCS: 76705 ==

== ENCOUNTER 2024-03-16 11:54 | Outpatient (CLI) | payer OTHER, MEDICAID | END 2024-03-16 11:55 | disposition home or self-care (01) | LOC: BICCT 11:54 | PROVIDERS: ATTEND Family Medicine | DX: Z12.2 Encounter for screening for malignant neoplasm of respiratory organs (principal); F17.210 Nicotine dependence, cigarettes, uncomplicated | CPT/HCPCS: 71271 ==